=== PATIENT | female | born 1990 | race Hispanic/Latino ===

== ENCOUNTER 2021-10-14 18:37 | Emergency (ER) | payer BC, SELFPAY ==
[2021-10-14 18:49] VITALS: BP 142/94; PULSE 67; RESP 16; TEMP 36.6; O2SAT 100
--- NOTE | 2021-10-14 18:53 | ED.URI ---
HPI - URI/Sore Throat General Chief Complaint: Upper Respiratory Infection Stated Complaint: cough Time Seen by Provider: 10/14/21 18:53 Source: patient, family, RN notes reviewed, old records reviewed and product safety engineer (Family member, declined telephone product safety engineer) Mode of arrival: ambulatory Limitations: no limitations History of Present Illness HPI Narrative: 31-year-old female presents to the [facility] with complaints of cough, fever for the last 2 to 3 days. Reports a fever of 101 at home. Has tried Tylenol MD elicited complaint: cough, rhinorrhea, nasal congestion and sinus pain Related Data Allergies Allergy/AdvReac Type Severity Reaction Status Date / Time No Known Allergies Allergy Verified 10/14/21 19:08 Review of Systems Review of Systems: All systems reviewed & are unremarkable except as noted in HPI and below Constitutional: Constitutional: Reports as per HPI, Reports chills, Reports fever(s) and Denies headache(s) Eyes: Eyes: Reports no additional eye complaints ENT: Reports as per HPI, Denies vertigo, Denies dizziness, Denies headache(s), Reports nasal congestion and Denies sore throat Cardiovascular: Cardiovascular: Reports no additional cardiovascular complaints, Denies chest pain, Denies syncope, Denies rapid heart rate and Denies dyspnea Respiratory: Respiratory: Reports as per HPI, Reports chest congestion, Reports cough, Denies dyspnea and Denies wheezing Gastrointestinal: Gastrointestinal: Reports no additional gastrointestinal complaints, Denies abdominal pain, Denies diarrhea, Denies nausea and Denies vomiting Musculoskeletal: Musculoskeletal: Reports no additional musculoskeletal complaints and Denies numbness Integumentary/Breasts: Skin/Breast: Reports system reviewed and no additional complaints, except as docu Neurologic: Reports system reviewed and no additional complaints, except as documented, Denies vertigo, Denies dizziness, Denies syncope, Denies headache(s), Denies focal weakness and Denies numbness Psychiatric: Psychiatric: Reports no additional psychiatric complaints Allergic/Immunologic: Allergic/Immunologic: Reports no additional allergic/immunologic complaints and Denies wheezing PMFSH Past Medical History Medical History (Updated 10/14/21 @ 20:00 by Charley Meehan APRN) No significant medical problems Surgical History Surgical History (Updated 10/14/21 @ 20:00 by Charley Meehan APRN) No pertinent past surgical history Comments At the time of my signature, I reviewed and agree with the nursing past medical, surgical, social, and family history. There is no relevant family history pertinent to the patient complaint. Exam Const: General: cooperative, healthy appearing, no acute distress, well developed and alert Nutritional Appearance: well nourished Orientation/consciousness: patient oriented x3 Limitations: no limitations HENMT: Head: normal to inspection Ears: external ears normal, TM's normal bilaterally and EAC's normal Mouth: Yes moist mucous membranes Throat: posterior oropharynx normal Eyes: Conjunctivae: conjunctivae normal Pupils: Equal, round and reactive pupils present Neck: Neck: normal visual inspection, no lymphadenopathy and no meningeal signs Chest: Chest palpation & inspection: normal inspection of the chest Resp: Effort & Inspection: normal respiratory effort and no use of accessory muscles Auscultation: clear to auscultation bilaterally, no crackles, no rales, no rhonchi and no wheezes Cardio: Rate: regular rate Rhythm: regular rhythm : General: Yes no CVA tenderness Back/Spine/Pelvis: Back: no CVA tenderness Skin: General skin exam: normal color Rashes: no rashes Wounds: no wounds Neuro: General: patient oriented x3, moves all extremities, no meningeal signs and no focal motor deficits Cranial nerves: Yes Equal, round and reactive pupils present Speech: normal speech Gait exam (Neuro): Normal gait present Extrem: General: nor
[2021-10-15 18:42] LABS: SARS-CoV-2 RNA PCR Negative
== END 2021-10-14 19:20 | disposition home or self-care (01) ==
PROVIDERS: Emergency Provider Nurse Practitioner
DX: J40 Bronchitis, not specified as acute or chronic (principal); Z20.822 Contact with and (suspected) exposure to COVID-19
CPT/HCPCS: 87426; 87804; 99203; 99213; C9803; G0463; U0003; U0005

== ENCOUNTER 2021-11-09 12:33 | Emergency (ER) | payer BC, SELFPAY ==
--- NOTE | ~2021-11-09 | CT_ITS ---
EXAMINATION: CT brain wo con DATE: 11/09/2021 13:08 INDICATION: Headache and dizziness TECHNIQUE: Computed tomography (CT) of the head was performed without intravenous contrast. Sagittal and coronal reconstructions were performed. The mA was adjusted according to patient size. Iterative reconstruction technique was employed. The dose-length product was 529.67 mGy-cm. COMPARISON: None FINDINGS: No acute intracranial hemorrhage, acute infarction or abnormal extra axial fluid collection. Ventricl es are normal and symmetric. No mass/mass effect. The orbits, paranasal sinuses and mastoid air cells are normal. IMPRESSION: 1. Normal brain. No acute intracranial process. Reviewed, dictated and finalized at location A.
[2021-11-09 12:37] VITALS: BP 171/110; PULSE 66; RESP 26; TEMP 36.9; O2SAT 100
--- NOTE | 2021-11-09 12:44 | ECG_ITS ---
Measurements Intervals [place] Rate: 61 P: 35 VA: 157 QRS: 1 QRSD: 98 T: -1 QT: 397 QTc: 402 Interpretive Statements SINUS RHYTHM MODERATE T-WAVE ABNORMALITY, CONSIDER ANTERIOR ISCHEMIA [-0.1+ mV T-WAVE IN V3/V4] ABNORMAL ECG NO PREVIOUS ECG AVAILABLE FOR COMPARISON Electronically Signed On 11-09-2021 14:35:12 CDT by Wilfredo Lovett M.D.
--- NOTE | 2021-11-09 12:55 | ED.HA ---
HPI - Headache General Chief Complaint: Dizziness Stated Complaint: headache Time Seen by Provider: 11/09/21 12:45 History of Present Illness HPI Narrative: 31-year-old female presents to the ER today for complaints of posterior headache with associated dizziness, photophobia, and nausea. No vomiting. She reports that her symptoms started early this morning. It was gradual onset but continues to get worse. She says that the pain came on gradually. No visual changes or extremity weakness. No problems with speech. No confusion. She denies having any chest pain but does report that she feels short of breath when her pain is more severe. Denies any abdominal pain. No urinary symptoms or diarrhea. No fever or chills. Related Data Allergies Allergy/AdvReac Type Severity Reaction Status Date / Time No Known Allergies Allergy Verified 11/09/21 12:48 Review of Systems Review of Systems: CONSTITUTIONAL: Denies fever, chills, or sweats. EYES: Denies visual changes, redness, or discharge. ENT: Denies rhinorrhea, congestion, sore throat, or otalgia. CARDIOVASCULAR: Denies chest pain, palpitations, or edema. RESPIRATORY: Denies cough or chest congestion GASTROINTESTINAL: Denies abdominal pain, vomiting, or diarrhea. Reports nausea. GENITOURINARY: Denies dysuria or hematuria. SKIN: Denies rash or itching. MUSCULOSKELETAL: Denies back pain, joint pain, or myalgia. NEUROLOGIC: As per HPI PSYCHIATRIC: Denies anxiety or depression. PMFSH Past Medical History Medical History No significant medical problems Surgical History Surgical History No pertinent past surgical history Exam Narrative: GENERAL: Well-appearing, well-nourished, and in no acute distress. HEAD: Normocephalic, atraumatic. EYES: PERRLA and EOMI. ENT: Nares clear, no rhinorrhea or epistaxis. Mucous membranes moist. Oropharynx without tonsillar hypertrophy exudate or other lesions. Bilateral TMs pearly kerr nonbulging NECK: Supple. No meningeal signs. No adenopathy or masses. No carotid bruits or JVD CHEST: Clear to auscultation. No respiratory distress. No wheezes rales or rhonchi HEART: Regular rate and rhythm. No murmur heard. Normal peripheral pulses. ABDOMEN: Soft, nontender, nondistended, normal active bowel sounds. EXTREMITIES: Normal range of motion. No edema. SKIN: Warm, dry, no rash. NEURO: No focal deficits. Alert and oriented x3. PSYCH: Normal mood and affect. Course Reevaluation(s) Reevaluation #1: Pt reports that her symptoms are resolved. Feeling much better. Date: 11/09/21 Time: 13:30 Vital Signs Vital signs: Vital Signs Temperature 36.9 C 11/09/21 12:37 Pulse Rate 66 11/09/21 12:37 Respiratory Rate 26 H 11/09/21 12:37 Blood Pressure 171/110 H 11/09/21 12:37 Pulse Oximetry 100 11/09/21 12:37 Oxygen Delivery Room Air 11/09/21 12:37 Temperature 36.9 C 11/09/21 12:37 Pulse Rate 71 11/09/21 13:14 Respiratory Rate 26 H 11/09/21 12:37 Blood Pressure 146/98 H 11/09/21 13:14 Pulse Oximetry 100 11/09/21 12:37 Oxygen Delivery Room Air 11/09/21 12:37 MDM - Headache Lab Data Attestation: I reviewed the patient's lab results. Result diagrams: 11/09/21 12:57 11/09/21 13:21 Labs: Lab Results 11/09/21 11/09/21 11/09/21 Range/Units 12:57 13:10 13:21 WBC 6.5 (4.5-10.0) K/mm3 RBC 4.97 (4.2-5.4) M/mm3 Hgb 14.8 (12.0-15.0) g/dL Hct 43.4 (37.0-47.0) % MCV 87.3 (80-100) fl MCH 29.8 (26-34) pg MCHC 34.1 (32-36) g/dl RDW 12.2 (11.5-14.5) % Plt Count 292 (150-375) k/mm3 MPV 10.0 (7.4-10.4) fl Immature Gran % (Auto) 0.3 (0-0.5) % Neut % (Auto) 59.2 (45.5-73.1) % Lymph % (Auto) 32.9 (18.3-44.2) % Cochran % (Auto) 5.9 (2.6-8.5) % Eos % (Auto) 1.2 (0-4.4) % Baso % (Auto) 0.5 (0.
[2021-11-09 13:02] LABS: Basophils Percent Auto 0.5 % (0.2-1.2); Eosinophils Absolute Auto 0.1 K/mm3 (0-0.3); Eosinophils Percent Auto 1.2 % (0-4.4); Hematocrit 43.4 % (37.0-47.0); Hemoglobin 14.8 g/dL (12.0-15.0); Immature Granulocyte Absolute 0.02 K/mm3 (0.00-0.031); Immature Granulocyte Percent A 0.3 % (0-0.5); Lymphocytes Absolute Auto 2.13 K/mm3 (0.9-3.2); Lymphocytes Percent Auto 32.9 % (18.3-44.2); Mean Corpuscular HGB Conc 34.1 g/dl (32-36); Mean Corpuscular Hemoglobin 29.8 pg (26-34); Mean Corpuscular Volume 87.3 fl (80-100); Monocytes Absolute Auto 0.4 K/mm3 (0.1-0.6); Monocytes Percent Auto 5.9 % (2.6-8.5); Neutrophils Absolute Auto 3.8 K/mm3 (1.3-6.7); Neutrophils Percent Auto 59.2 % (45.5-73.1); Platelet Count Result 292 k/mm3 (150-375); Red Blood Count 4.97 M/mm3 (4.2-5.4); Red Cell Distribution Width 12.2 % (11.5-14.5); White Blood Count 6.5 K/mm3 (4.5-10.0)
--- NOTE | 2021-11-09 13:10 | PC.NURSE ---
pt in catscan
[2021-11-09 13:13] VITALS: BP 140/91; BP 145/100; PULSE 62; PULSE 70
[2021-11-09 13:14] VITALS: BP 146/98; PULSE 71
[2021-11-09] MEDS: METOCLOPRAMIDE HCL INJ 10 MG/2 ML VIAL IV PUSH (13:20)
[2021-11-09] MEDS: diphenhydrAMINE HCl INJ 50 MG/ML VIAL IV PUSH (13:20)
[2021-11-09] MEDS: SODIUM CHLORIDE 0.9% IV 1,000 ML 999 ML IV CONT (13:20)
[2021-11-09 13:28] LABS: Appearance Urine Slightly Cloudy (Clear); Bilirubin Urine Negative (Negative); Blood Urine 2+ (Negative); Glucose Urine UA Negative (Negative); Ketones Urine Negative (Negative); Leukocyte Esterase Ur 1+ LEU/UL (Negative); Nitrate Urine Negative (Negative); Protein Urine Negative (Negative); Urobilinogen Urine 0.2 mg/dL (<2.0)
[2021-11-09 13:40] LABS: Add Urine Microscopic? YES; Color Urine Light Yellow (Yellow)
[2021-11-09 13:46] LABS: WBC Urine 21-30 /hpf
[2021-11-09 13:47] LABS: Bacteria Urine Trace /hpf; Mucus Urine Few /lpf; Squamous Epithelial Cell Urine Many /hpf (Few)
[2021-11-09 14:14] LABS: Alanine Aminotransferase 122 U/L (6-35); Albumin Level 4.6 g/dL (3.5-5.1); Alkaline Phosphatase 67 U/L (38-126); Anion Gap 9 mmol/L (8-16); Aspartate Amino Transferase 74 U/L (14-36); Bilirubin,Total 0.6 mg/dL (0.2-1.3); Blood Urea Nitrogen 8 mg/dL (7-17); Calcium 9.1 mg/dL (8.4-10.2); Carbon Dioxide 24 mmol/L (22-30); Chloride 105 mmol/L (98-107); Estimated CRCL calculation 122 ml/min; Estimated Glomerular Filt Rate > 60; Glucose 96 mg/dL (65-110); Potassium 3.9 mmol/L (3.4-5.0); Sodium 138 mmol/L (137-145)
[2021-11-09 15:39] VITALS: BP 143/101; PULSE 76; RESP 26; O2SAT 99
--- NOTE | 2021-11-15 09:18 | PC.NURSE ---
LATE ENTRY This note is being entered to document information to the patient's record. The following information was omitted on [11/09/21 NS stop time is 1325. Rocephin stop time is 1540.
== END 2021-11-09 15:41 | disposition home or self-care (01) ==
PROVIDERS: Emergency Medicine; Emergency Provider Nurse Practitioner Family
DX: N39.0 Urinary tract infection, site not specified (principal); R51.9 Headache, unspecified; R42 Dizziness and giddiness; R94.31 Abnormal electrocardiogram [ECG] [EKG]
CPT/HCPCS: 36415; 70450; 80053; 81001; 81025; 85025; 87086; 93005; 96365; 96375; 99284; J0696; J1200; J2765; J7030

== ENCOUNTER 2022-04-02 17:07 | Emergency (ER) | payer BC, SELFPAY ==
[2022-04-02 17:20] VITALS: BP 138/99; PULSE 84; RESP 16; TEMP 36.6; O2SAT 100
--- NOTE | 2022-04-02 17:52 | ED.GENADULT ---
HPI - General Adult General Chief complaint: Headache Stated complaint: Right Side Pain all Over Time Seen by Provider: 04/02/22 17:52 Source: patient, RN notes reviewed, old records reviewed and tape keller operator (Italian, confucianist family) Mode of arrival: ambulatory Limitations: no limitations History of Present Illness HPI narrative: 31-year-old female presents to the [facility] with complaints of a left-sided headache. No neuro deficits. Patient is photo and phono sensitive. No treatment prior to arrival. Had been seen tape keller operator reports at [place] a year so ago. Per medical record patient was seen in the ER at [place] on November 09, 2021, CT head was done. Related Data Home Medications Medication Instructions Recorded Confirmed norethindrone 1 mg-ethinyl 1 tablet PO DAILY 04/02/22 04/02/22 estradiol 20 mcg (21)-iron 75 mg (7) tablet (Alicia Fe 06/15 (28)) Allergies Allergy/AdvReac Type Severity Reaction Status Date / Time No Known Allergies Allergy Verified 04/02/22 17:55 Review of Systems Review of Systems: All systems reviewed & are unremarkable except as noted in HPI and below Constitutional: Constitutional: Reports no additional constitutional complaints, Denies chills and Denies fever(s) Eyes: Eyes: Reports no additional eye complaints ENT: Reports system reviewed and no additional complaints, except as documented Cardiovascular: Cardiovascular: Reports no additional cardiovascular complaints Respiratory: Respiratory: Reports no additional respiratory complaints Gastrointestinal: Gastrointestinal: Reports no additional gastrointestinal complaints Musculoskeletal: Musculoskeletal: Reports no additional musculoskeletal complaints Integumentary/Breasts: Skin/Breast: Reports system reviewed and no additional complaints, except as docu Neurologic: Reports as per HPI, Denies syncope, Reports headache(s), Denies focal weakness, Denies numbness and Denies weakness Psychiatric: Psychiatric: Reports no additional psychiatric complaints Allergic/Immunologic: Allergic/Immunologic: Reports no additional allergic/immunologic complaints PMFSH Past Medical History Medical History No significant medical problems Surgical History Surgical History No pertinent past surgical history Comments At the time of my signature, I reviewed and agree with the nursing past medical, surgical, social, and family history. There is no relevant family history pertinent to the patient complaint. Exam Const: General: healthy appearing, comfortable, no acute distress, well developed, alert and well nourished Nutritional Appearance: well nourished Orientation/consciousness: patient oriented x3 Limitations: no limitations HENMT: Head: normal to inspection Ears: external ears normal, TM's normal bilaterally and EAC's normal Face/Nose/Sinus: Normal external nose present and Normal nares present Face and sinus: normal facial exam Mouth: Yes Normal oral and palatal mucosa present, Yes lip normal and Yes moist mucous membranes Teeth and gingiva: dentition normal Throat: posterior oropharynx normal and uvula midline Eyes: General: appearance normal, both eyes and all related structures Conjunctivae: conjunctivae normal Pupils: Equal, round and reactive pupils present EOM: EOMs intact bilaterally Neck: Neck: normal visual inspection, full ROM, no lymphadenopathy and no meningeal signs Chest: Chest palpation & inspection: normal inspection of the chest Resp: Effort & Inspection: normal respiratory effort and no use of accessory muscles Auscultation: clear to auscultation bilaterally, no crackles, no rales, no rhonchi and no wheezes Cardio: Rate: regular rate Rhythm: regular rhythm Back/Spine/Pelvis: Cervical Spine: cervical ROM normal and No Cervical spine tenderness Thoracic/Lumbar Spine: thoracic and lumbar spine
== END 2022-04-02 18:10 | disposition home or self-care (01) ==
PROVIDERS: Emergency Provider Nurse Practitioner; PCP Registered Nurse
DX: G43.909 Migraine, unspecified, not intractable, without status migrainosus (principal); E78.00 Pure hypercholesterolemia, unspecified; I10 Essential (primary) hypertension
CPT/HCPCS: 99213; G0463

== ENCOUNTER 2022-09-11 09:18 | Emergency (ER) | payer BC, SELFPAY ==
--- NOTE | ~2022-09-11 | US_ITS ---
EXAMINATION: US OB <= 14 weeks fetus DATE: 09/11/2022 12:49 INDICATION: Vaginal bleeding during first trimester TECHNIQUE: Real-time pelvic ultrasound utilizing transabdominal probe was performed. The kylee radford radiologist was not present for the study. COMPARISON: None. FINDINGS: The uterus measures 10.0 x 5.9 x 5.8 cm. There is an intrauterine gestational sac. A yolk sac and fe sami pole are identified. The crown rump length measures 9 mm, which correlates with an estimated gest ational age of 6 weeks and 6 days. heart motion is identified measuring 123 beats per minute (b pm) by M-mode Doppler. 9 mm very hypoechoic to anechoic lesion in the posterior uterine body could re present either a small fibroid or myometrial cyst. The right ovary measures 2.7 x 3.3 x 2.6 cm. The l eft ovary measures 4.0 x 3.8 x 2.6 cm. 2.5 similar anechoic likely corpus luteum cyst in the left ova ry. Vascular flow identified in both ovaries on color Doppler. There is no free fluid in the pelvis. IMPRESSION: 1. Single living fetus with heart rate of 123 bpm. 2. Gestational age by ultrasound of 6 weeks 6 day(s) +/- 4 day(s) with ultrasound estimated date of delivery (BALA) of 05/01/2023. Reviewed, dictated and finalized at location A. IMPRESSION: 1. Single living fetus with heart rate of 123 bpm. 2. Gestational age by ultrasound of 6 weeks 6 day(s) +/- 4 day(s) with ultraso und estimated date of delivery (BALA) of 05/01/2023.
[2022-09-11 09:26] VITALS: BP 142/73; PULSE 75; RESP 16; TEMP 36.6; O2SAT 100
[2022-09-11 09:59] LABS: Basophils Percent Auto 0.3 % (0.2-1.2); Eosinophils Absolute Auto 0.1 K/mm3 (0-0.3); Eosinophils Percent Auto 0.6 % (0-4.4); Hematocrit 42.4 % (37.0-47.0); Hemoglobin 14.6 g/dL (12.0-15.0); Immature Granulocyte Absolute 0.06 K/mm3 (0.00-0.031); Immature Granulocyte Percent A 0.5 % (0-0.5); Lymphocytes Absolute Auto 2.29 K/mm3 (0.9-3.2); Lymphocytes Percent Auto 18.6 % (18.3-44.2); Mean Corpuscular HGB Conc 34.4 g/dl (32-36); Mean Corpuscular Hemoglobin 30.5 pg (26-34); Mean Corpuscular Volume 88.5 fl (80-100); Mean Platelet Volume 9.9 fl (7.4-10.4); Monocytes Absolute Auto 0.6 K/mm3 (0.1-0.6); Monocytes Percent Auto 5.1 % (2.6-8.5); Neutrophils Absolute Auto 9.2 K/mm3 (1.3-6.7); Neutrophils Percent Auto 74.9 % (45.5-73.1); Platelet Count Result 318 k/mm3 (150-375); Red Blood Count 4.79 M/mm3 (4.2-5.4); Red Cell Distribution Width 12.9 % (11.5-14.5); White Blood Count 12.3 K/mm3 (4.5-10.0)
--- NOTE | 2022-09-11 12:32 | ED.GENADULT ---
HPI - General Adult General Chief complaint: Vaginal Bleeding Stated complaint: preg, vag bleeding Time Seen by Provider: 09/11/22 12:06 History of Present Illness HPI narrative: 32 y/o at approx 8.1 wga by lmp presents for eval of L sided abdominal cramping and vaginal spotting x 1 day. Related Data Home Medications Medication Instructions Recorded Confirmed norethindrone 1 mg-ethinyl 1 tablet PO DAILY 04/02/22 04/02/22 estradiol 20 mcg (21)-iron 75 mg (7) tablet (Alicia Fe 06/15 (28)) Allergies Allergy/AdvReac Type Severity Reaction Status Date / Time No Known Allergies Allergy Verified 09/11/22 09:35 Review of Systems Review of Systems: Gen.: Denies fevers or chills Eyes: Denies eye pain or visual change ENT: Denies congestion Respiratory: Denies shortness of breath or cough CV: Denies chest pain or palpitations GI: Denies abdominal pain nausea, emesis or diarrhea denies burning, urgency, frequency or hematuria Musculoskeletal: Denies back pain or muscle pain Neuro: Denies numbness, tingling, weakness or focal weakness Skin: Denies rash Except as documented, all other systems reviewed and negative PMFSH Past Medical History Medical History No significant medical problems Surgical History Surgical History No pertinent past surgical history Exam Narrative: GENERAL: Well-appearing, well-nourished, and in no acute distress. HEAD: Normocephalic, atraumatic. EYES: PERRLA and EOMI. ENT: Nares clear, no rhinorrhea or epistaxis. Mucous membranes moist. NECK: Supple. CHEST: Clear to auscultation. No respiratory distress. HEART: Regular rate and rhythm. No murmur heard. Normal peripheral pulses. ABDOMEN: gravid, Soft, nontender, nondistended, normal active bowel sounds. EXTREMITIES: Normal range of motion. No edema. SKIN: Warm, dry, no rash. NEURO: No focal deficits. Alert and oriented x3. PSYCH: Normal mood and affect. Course Vital Signs Vital signs: Vital Signs Temperature 98 F 09/11/22 09:26 Pulse Rate 75 09/11/22 09:26 Respiratory Rate 16 09/11/22 09:26 Blood Pressure 142/73 H 09/11/22 09:26 Pulse Oximetry 100 09/11/22 09:26 Oxygen Delivery Room Air 09/11/22 09:26 Temperature 98 F 09/11/22 09:26 Pulse Rate 73 09/11/22 15:32 Respiratory Rate 18 09/11/22 15:32 Blood Pressure 143/85 H 09/11/22 15:32 Pulse Oximetry 100 09/11/22 15:32 Oxygen Delivery Room Air 09/11/22 09:26 Medical Decision Making MDM Narrative Medical decision making narrative: 32 yo female at 8.1 wga presents for eval of abd cramping and vag bleeding. No urinary symptoms. No ob galen yet. history obtained through interpretor. Pelvic US- IMPRESSION: 1. Single living fetus with heart rate of 123 bpm. 2.? Gestational age by ultrasound of 6 weeks 6 day(s) +/- 4 day(s) with ultrasound estimated date of delivery (BALA) of 05/01/2023.[facility] interpretor. workup indicative of uti which is likely contributing to pt's symptos. abx at DC and f/u with scudding inspector Vital Signs Vital Signs: Vital Signs Temperature 98 F 09/11/22 09:26 Pulse Rate 75 09/11/22 09:26 Respiratory Rate 16 09/11/22 09:26 Blood Pressure 142/73 H 09/11/22 09:26 Pulse Oximetry 100 09/11/22 09:26 Oxygen Delivery Room Air 09/11/22 09:26 Temperature 98 F 09/11/22 09:26 Pulse Rate 73 09/11/22 15:32 Respiratory Rate 18 09/11/22 15:32 Blood Pressure 143/85 H 09/11/22 15:32 Pulse Oximetry 100 09/11/22 15:32 Oxygen Delivery Room Air 09/11/22 09:26 Lab Data 09/11/22 09:44 Labs: Lab Results 09/11/22 09/11/22 09/11/22 Range/Units 09:44 09:44 09:44 WBC 12.3 H (4.5-10.0) K/mm3 RBC 4.79 (4.2-5.4) M/mm3 Hgb 14.6 (12.0-15.0) g/dL Hct 42.4 (37.0-47.0) % MCV 88.5 (80-100) fl MCH 30.5 (26-34) pg MCHC 34.4
[2022-09-11 13:24] VITALS: BP 137/85; PULSE 78; RESP 18; O2SAT 100
[2022-09-11 15:32] VITALS: BP 143/85; PULSE 73; RESP 18; O2SAT 100
[2022-09-11 15:41] LABS: Appearance Urine Turbid (Clear); Bilirubin Urine Negative (Negative); Blood Urine 3+ (Negative); Color Urine Yellow (Yellow); Glucose Urine UA Negative (Negative); Ketones Urine Negative (Negative); Nitrate Urine Negative (Negative); Protein Urine Negative (Negative); Specific Grav Ur 1.013 (1.001-1.035)
[2022-09-11 15:42] LABS: Bacteria Urine 4+ /hpf; Leukocyte Esterase Ur 3+ LEU/UL (Negative); Non Pathogenic Casts 0-2; Squamous Epithelial Cell Urine Many /hpf (Few); WBC Urine 21-50 /hpf
[2022-09-11 15:43] LABS: Add Urine Microscopic? YES
== END 2022-09-11 16:33 | disposition home or self-care (01) ==
PROVIDERS: Emergency Medicine; Emergency Provider Emergency Medicine; PCP Registered Nurse
DX: O26.851 Spotting complicating pregnancy, first trimester (principal); O23.41 Unspecified infection of urinary tract in pregnancy, first trimester; N39.0 Urinary tract infection, site not specified; Z3A.08 8 weeks gestation of pregnancy
CPT/HCPCS: 36415; 76801; 81001; 84702; 85025; 85461; 86850; 86900; 86901; 87086; 87088; 99283; 99284

== ENCOUNTER 2022-11-13 14:25 | Emergency (ER) | payer BC, SELFPAY ==
[2022-11-13 14:34] VITALS: BP 126/87; PULSE 93; RESP 16; TEMP 36.7; O2SAT 99
--- NOTE | 2022-11-13 15:06 | ED.NAVMDI ---
HPI - Nausea/Vomiting/Diarrhea General Chief complaint: Nausea/Vomiting/Diarrhea Stated complaint: Vomiting/Headache Time Seen by Provider: 11/13/22 15:10 Source: patient and RN notes reviewed Mode of arrival: ambulatory Limitations: no limitations History of Present Illness HPI Narrative: 32-year-old female who is 4 months presents concern for 2 days of nausea and vomiting with headache. She reports trouble keeping anything down since the symptoms started. She reports normal amount of urination, denies urgency, frequency, dysuria. Denies fever, aches, chills, sweats. Denies diarrhea. MD elicited complaint: nausea and vomiting Related Data Home Medications Medication Instructions Recorded Confirmed 11/13/22 nifedipine 30 mg tablet,extended mg PO 11/13/22 release 24 hr Allergies Allergy/AdvReac Type Severity Reaction Status Date / Time No Known Allergies Allergy Verified 11/13/22 14:42 Review of Systems Review of Systems: CONSTITUTIONAL: Denies malaise, chills, sweats, or fever. ENT: Denies rhinorrhea, congestion, sinus pain, otalgia or sore throat. CARDIOVASCULAR: Denies chest pain, palpitations, or edema. RESPIRATORY: Denies cough or dyspnea. GASTROINTESTINAL: Denies abdominal pain, diarrhea, bloody, or mucous stools. Reports nausea and vomiting GENITOURINARY: Denies dysuria or hematuria. MUSCULOSKELETAL: Denies myalgia. NEUROLOGIC: Denies headache. All systems reviewed & are unremarkable except as noted in HPI and below PMFSH Past Medical History Medical History No significant medical problems Surgical History Surgical History No pertinent past surgical history Comments At time of signature, agree with nursing past medical, surgical, social and family history. There is no relevant family history pertinent to the presenting complaint Exam Narrative: GENERAL: Well-appearing, well-nourished, and in no acute distress. HEAD: Normocephalic, atraumatic. EYES: PERRLA, conjunctivae clear, and EOMI. ENT: Nares clear, turbinates pink, no rhinorrhea or epistaxis. Mucous membranes moist. Oropharynx without edema, erythema, or lesions. Tonsils not enlarged and without exudate. NECK: Supple. No lymphadenopathy CHEST: Speaks in full sentences. No respiratory distress. HEART: Regular rate and rhythm. ABDOMEN: Soft, 4 months , nontender. Bowel sounds present in all four quadrants. SKIN: Warm, dry, no rash. NEURO: Alert and oriented x3. PSYCH: Normal mood and affect Course Course Emergency Course: Patient is aware of diagnosis, understands and agrees to treatment plan. Anticipatory guidance given. Patient agrees to follow-up as directed and is aware of reasons to seek care at the emergency department. Portions of this record may have been created with voice recognition software Level of Care: Express Care Visit Vital Signs Vital signs: Vital Signs Temperature 98.0 F 11/13/22 14:34 Pulse Rate 93 11/13/22 14:34 Respiratory Rate 16 11/13/22 14:34 Blood Pressure 126/87 11/13/22 14:34 Pulse Oximetry 99 11/13/22 14:34 Oxygen Delivery Room Air 11/13/22 14:34 Temperature 98.0 F 11/13/22 14:34 Pulse Rate 93 11/13/22 14:34 Respiratory Rate 16 11/13/22 14:34 Blood Pressure 126/87 11/13/22 14:34 Pulse Oximetry 99 11/13/22 14:34 Oxygen Delivery Room Air 11/13/22 14:34 Reviewed. MDM - Nausea/Vomiting/Diarrhea MDM Narrative Medical decision making narrative: Exam findings show no acute concerns or changes; patient is non-toxic appearing and is in no distress. Patient is appropriate for outpatient treatment and follow-up. Critical Care Time Critical Care Time Critical Care Time: No Discharge Plan Discharge Clinical Impression: Nausea & vomiting Patient Disposition: Home, Self-Care Condition: Stable
== END 2022-11-13 15:32 | disposition home or self-care (01) ==
PROVIDERS: Emergency Provider Nurse Practitioner; PCP Obstetrics & Gynecology
DX: O21.9 Vomiting of pregnancy, unspecified (principal); Z3A.00 Weeks of gestation of pregnancy not specified
CPT/HCPCS: 81003; 87081; 87880; 99213; G0463

== ENCOUNTER 2022-12-24 15:01 | Emergency (ER) | payer BC, SELFPAY ==
[2022-12-24 16:00] VITALS: BP 124/77; PULSE 96; RESP 16; TEMP 36.6; O2SAT 99
--- NOTE | 2022-12-24 16:07 | PC.NURSE ---
spoke with fire extinguisher charger who recommended speaking with OB regarding where pt will be seen, since pt is 22 weeks and having abd pain. called marbin in OB, who recommended that pt remain in ER to be evaluated for n/v. requested when pt gets back to a room to call OB and have them come into dept to examine pt. lithopone charger aware
[2022-12-24 16:36] LABS: Basophils Percent Auto 0.2 % (0.2-1.2); Eosinophils Absolute Auto 0.1 K/mm3 (0-0.3); Eosinophils Percent Auto 1.1 % (0-4.4); Hematocrit 36.9 % (37.0-47.0); Hemoglobin 12.9 g/dL (12.0-15.0); Immature Granulocyte Absolute 0.07 K/mm3 (0.00-0.031); Immature Granulocyte Percent A 0.6 % (0-0.5); Lymphocytes Absolute Auto 1.99 K/mm3 (0.9-3.2); Lymphocytes Percent Auto 16.4 % (18.3-44.2); Mean Corpuscular Hemoglobin 30.4 pg (26-34); Mean Platelet Volume 9.6 fl (7.4-10.4); Monocytes Absolute Auto 0.8 K/mm3 (0.1-0.6); Monocytes Percent Auto 6.2 % (2.6-8.5); Neutrophils Absolute Auto 9.2 K/mm3 (1.3-6.7); Neutrophils Percent Auto 75.5 % (45.5-73.1); Platelet Count Result 274 k/mm3 (150-375); Red Blood Count 4.24 M/mm3 (4.2-5.4); Red Cell Distribution Width 12.7 % (11.5-14.5); White Blood Count 12.2 K/mm3 (4.5-10.0)
[2022-12-24 16:49] LABS: Alanine Aminotransferase 20 U/L (6-35); Albumin Level 4.2 g/dL (3.5-5.1); Alkaline Phosphatase 58 U/L (38-126); Anion Gap 9 mmol/L (8-16); Aspartate Amino Transferase 26 U/L (14-36); Bilirubin,Total 0.3 mg/dL (0.2-1.3); Blood Urea Nitrogen 6 mg/dL (7-17); Calcium 8.8 mg/dL (8.4-10.2); Carbon Dioxide 22 mmol/L (22-30); Chloride 103 mmol/L (98-107); Estimated CRCL calculation 134 ml/min; Estimated Glomerular Filt Rate > 60; Glucose 100 mg/dL (65-110); Lipase 103 U/L (23-300); Potassium 3.3 mmol/L (3.4-5.0); Sodium 134 mmol/L (137-145)
[2022-12-24 17:46] VITALS: BP 123/91; PULSE 79; RESP 14; TEMP 37.1; O2SAT 100
[2022-12-24 18:21] LABS: Appearance Urine Turbid (Clear); Bacteria Urine 1+ /hpf; Bilirubin Urine Negative (Negative); Blood Urine Negative (Negative); Color Urine Yellow (Yellow); Glucose Urine UA Trace mg/dL (Negative); Ketones Urine Negative (Negative); Leukocyte Esterase Ur 1+ LEU/UL (Negative); Nitrate Urine Negative (Negative); Non Pathogenic Casts 0-2; Protein Urine Negative (Negative); Specific Grav Ur 1.012 (1.001-1.035); Squamous Epithelial Cell Urine Moderate /hpf (Few); Urobilinogen Urine 0.2 mg/dL (<2.0); pH Urine 7.5 (5.0-9.0)
--- NOTE | 2022-12-24 18:22 | PC.NURSE ---
ANTHONY Haynes from OB was bedside to dopple FHS and the baby was sitting around 130-135bpm.
[2022-12-24 18:23] LABS: Add Urine Microscopic? YES
[2022-12-24] MEDS: ONDANSETRON INJ 4 MG/2 ML VIAL IV PUSH (18:44)
[2022-12-24] MEDS: SODIUM CHLORIDE 0.9% IV 1,000 ML 999 ML IV CONT (18:44)
--- NOTE | 2022-12-24 19:24 | ED.GENADULT ---
HPI - General Adult General Chief complaint: Nausea/Vomiting/Diarrhea Stated complaint: vomiting, abd pain Time Seen by Provider: 12/24/22 17:47 History of Present Illness HPI narrative: Patient is a 32-year-old female who presents ER with nausea and vomiting. Ongoing for 24 hours. Associate with lower abdominal cramping. Patient is 22 weeks in gestation and is a G2, P1. No complications with previous . During this patient has developed some hypertension. She has recently been started on nifedipine. No vaginal bleeding or leakage of fluid from vagina. Has urinary frequency but no dysuria. No fevers or chills or sweats. No diarrhea. Related Data Home Medications Medication Instructions Recorded Confirmed 11/13/22 nifedipine 30 mg tablet,extended mg PO 11/13/22 release 24 hr Allergies Allergy/AdvReac Type Severity Reaction Status Date / Time No Known Allergies Allergy Verified 12/24/22 18:04 Review of Systems Review of Systems: All systems reviewed & are unremarkable except as noted in HPI and below Constitutional: Constitutional: Denies chills and Denies fever(s) Cardiovascular: Cardiovascular: Denies chest pain and Denies rapid heart rate Respiratory: Respiratory: Denies cough and Denies dyspnea Gastrointestinal: Gastrointestinal: Reports abdominal pain, Denies diarrhea, Reports nausea and Reports vomiting Genitourinary: Genitourinary: Denies abnormal vaginal bleeding, Denies hematuria, Reports nocturia, Denies dysuria, Denies flank pain and Denies vaginal discharge PMFSH Past Medical History Medical History No significant medical problems Surgical History Surgical History No pertinent past surgical history Exam Narrative: GENERAL: Well-appearing, well-nourished, and in no acute distress. HEAD: Normocephalic, atraumatic. ENT: Mucous membranes moist. NECK: Supple. CHEST: Clear to auscultation. No respiratory distress. HEART: Regular rate and rhythm. Normal peripheral pulses. ABDOMEN: Soft, nontender, gravid uterus. EXTREMITIES: Normal range of motion. No edema. SKIN: Warm, dry, no rash. NEURO: Alert and oriented x3. PSYCH: Normal mood and affect. Course Course Emergency Course: Patient resting comfortably. She has been hydrated and received antinausea medicine. Concern for mild UTI and patient be started on antibiotics. Discharge home and recommend follow-up with her OB. heart tones present. Vital Signs Vital signs: Vital Signs Temperature 97.8 F 12/24/22 16:00 Pulse Rate 96 12/24/22 16:00 Respiratory Rate 16 12/24/22 16:00 Blood Pressure 124/77 12/24/22 16:00 Pulse Oximetry 99 12/24/22 16:00 Oxygen Delivery Room Air 12/24/22 16:00 Temperature 98.7 F 12/24/22 17:46 Pulse Rate 79 12/24/22 17:46 Respiratory Rate 14 12/24/22 17:46 Blood Pressure 123/91 H 12/24/22 17:46 Pulse Oximetry 100 12/24/22 17:46 Oxygen Delivery Room Air 12/24/22 17:46 Medical Decision Making Vital Signs Vital Signs: Vital Signs Temperature 97.8 F 12/24/22 16:00 Pulse Rate 96 12/24/22 16:00 Respiratory Rate 16 12/24/22 16:00 Blood Pressure 124/77 12/24/22 16:00 Pulse Oximetry 99 12/24/22 16:00 Oxygen Delivery Room Air 12/24/22 16:00 Temperature 98.7 F 12/24/22 17:46 Pulse Rate 79 12/24/22 17:46 Respiratory Rate 14 12/24/22 17:46 Blood Pressure 123/91 H 12/24/22 17:46 Pulse Oximetry 100 12/24/22 17:46 Oxygen Delivery Room Air 12/24/22 17:46 Lab Data 12/24/22 16:08 12/24/22 16:08 Labs: Lab Results 12/24/22 12/24/22 Range/Units 16:08 18:07 WBC 12.2 H (4.5-10.0) K/mm3 RBC 4.24 (4.2-5.4) M/mm3 Hgb 12.9 (12.0-15.0) g/dL Hct 36.9 L (37.0-47.0) % MCV 87.0 (80-100) fl MCH 30.4 (26-34) pg MCHC
[2022-12-24 20:57] VITALS: BP 119/81; PULSE 76; RESP 16; O2SAT 100
== END 2022-12-24 20:58 | disposition home or self-care (01) ==
PROVIDERS: Emergency Provider Emergency Medicine; PCP Obstetrics & Gynecology
DX: O23.42 Unspecified infection of urinary tract in pregnancy, second trimester (principal); N39.0 Urinary tract infection, site not specified; O21.9 Vomiting of pregnancy, unspecified; Z3A.22 22 weeks gestation of pregnancy
CPT/HCPCS: 36415; 80053; 81001; 81025; 83690; 85025; 87086; 87088; 96361; 96374; 99284; J2405; J7030

== ENCOUNTER 2023-05-09 22:03 | Emergency (ER) | payer BC, SELFPAY ==
[2023-05-09 22:03] VITALS: BP 117/68; PULSE 116; RESP 18; TEMP 36.3; O2SAT 99
--- NOTE | 2023-05-10 00:50 | PC.NURSE ---
Pt left ED w/out notifying the intake nurse, was not seen leaving. Did not answer when called to a room.
== END 2023-05-10 02:21 | disposition left against medical advice (07) ==
PROVIDERS: PCP Obstetrics & Gynecology
DX: I10 Essential (primary) hypertension (principal)
CPT/HCPCS: 99199

== ENCOUNTER 2024-09-17 19:29 | Emergency (ER) | payer SELFPAY ==
[2024-09-17 19:37] VITALS: BP 175/101; PULSE 60; RESP 18; TEMP 36.5; O2SAT 100
--- NOTE | 2024-09-17 19:51 | ED_ITS ---
HPI - Abdominal Pain General Chief Complaint: Nausea/Vomiting/Diarrhea Stated Complaint: Vomiting/Dizziness Time Seen by Provider: 09/17/24 19:40 Source: patient and RN notes reviewed Mode of arrival: ambulatory Limitations: no limitations History of Present Illness HPI narrative: 34-year-old Burmese-speaking female presents with a friend that can speak [place]an to [facility] complaining of nausea and vomiting and abdominal pain approximately 2 hours ago. Patient said she knows she did start developing blurry vision followed by an intense epigastric pain that led to intractable vomiting since. Patient says she has not been able to stop vomiting since she has gotten here. She has vomited once since she was here. She said sometimes the symptoms happen when she has high blood pressure. She said she took her nifedipine this morning. She denies any fever, body aches, chills, diarrhea, bloody vomit, or blood in her stool. Patient rates her pain at 10/10. She reports that her epigastric pain feels sharp and twisting like sensation. Related Data Home Medications ?Medication ?Instructions ?Recorded ?Confirmed ?Last Taken ?Type nifedipine 30 mg tablet,extended 30 mg PO DAILY 11/13/22 09/17/24 Unknown History release 24 hr Allergies Allergy/AdvReac Type Severity Reaction Status Date / Time No Known Allergies Allergy Verified 09/17/24 19:55 Review of Systems Review of Systems: CONSTITUTIONAL: Denies fever, chills, or sweats. EYES: Denies visual changes, redness, or discharge. Positive for blurry vision ENT: Denies rhinorrhea, congestion, sore throat, or otalgia. CARDIOVASCULAR: Denies chest pain, palpitations, or edema. RESPIRATORY: Denies cough or dyspnea. GASTROINTESTINAL: Positive for abdominal pain, nausea, vomiting new. Negative for hematochezia, melena, diarrhea. GENITOURINARY: Denies dysuria or hematuria. SKIN: Denies rash or itching. MUSCULOSKELETAL: Denies back pain, joint pain, or myalgia. NEUROLOGIC: Denies headache, numbness, or weakness. PSYCHIATRIC: Denies anxiety or depression. All other systems reviewed are negative, except as documented in HPI. [facility] Past Medical History Medical History No significant medical problems Surgical History Surgical History No pertinent past surgical history Comments At the time of my signature, I reviewed and agree with the nursing past medical, surgical, social, and family history. There is no relevant family history pertinent to the patient complaint. Exam Narrative: GENERAL: This is a well-nourished, well-developed adult, in no apparent distress. She is ill-appearing. Nontoxic appearing. HEAD: normocephalic, atraumatic. EYES: Sclera clear/white. Vision is grossly intact. EARS: External ears normal, Hearing grossly intact. NOSE: External nose normal THROAT: Mucous membranes moist NECK: Normal range of motion CARDIOVASCULAR: Regular rate and rhythm without murmurs, gallops, or rubs. RESPIRATORY: Clear to auscultation. Breath sounds equal bilaterally. No wheezes, rales, or rhonchi. GASTROINTESTINAL: Abdomen is distended, tender to palpation throughout. Abdomen is firm to left lower quadrant. Bowel sounds are absent. Patient is guarding her abdomen. SKIN: She is pale, warm, Dry, intact with no suspicious lesions or rash NEURO: awake, alert, and oriented to person, place and time. There were no obvious focal neurologic abnormalities. Course Course Emergency Course: Portions of this record may have been created with voice recognition software Level of Care: Express Care Visit Vital Signs Vital signs: Vital Signs Temperature 97.7 F 09/17/24 19:37 Pulse Rate 60 09/17/24 19:37 Respiratory Rate 18 09/17/24 19:37 Blood Pressure 175/101 H 09/17/24 19:37 Pulse Oximetry 100 09/17/24 19:37 Oxygen Delivery Room Air 09/17/24 19:37 Temperature 97.7 F 09/17/24 19:37 Pulse Rate 60 09/17/24 19:37 Respiratory Rate 18 09/17/24 19:37 Blood Pressure 175/101 H 09/17/24 19:37 Pulse Oximetry 100 09/17/24 19:37 Oxygen Delivery Room Air 09/17/24 19:37 Reviewed Transfer Transfered to: [facility]: [facility] Transfer rationale: Possible acute abdomen or hypertensive urgency, requiring higher level care and emergency department Accepting physician: Mattie FREIRE Transfer comments: [facility] is taking patient to [facility]. MDM - Abdominal Pain MDM Narrative Medical decision making narrative: Given past exam findings it is recommended the patient seek a higher level care for her acute abdomen symptoms and possible hypertensive urgency. Called and gave report to [facility] where she requested to go. Spoke with Mattie FREIRE who is aware the patient accepted the patient for transfer. Patient will be transferred via EMS over to [facility]. Differential Diagnosis Differential diagnosis: Likely other (Gastroenteritis, small-bowel obstruction, hypertensive crisis) Critical Care Time Critical Care Time Critical Care Time: No Discharge Plan Discharge Clinical Impression: Abdominal pain Qualifiers: Abdominal location: generalized Qualified Code(s): R10.84 - Generalized abdominal pain Patient Disposition: Acute Care Hospital Condition: Stable Patient Language: Burmese Prescriptions: No Action nifedipine 30 mg tablet extended release 24hr 30 mg PO DAILY Follow-up/Referrals: Milagros,Theo Castellon MD [Primary Care Provider] - Time of Disposition: 19:58
== END 2024-09-17 19:57 | disposition short-term general hospital (02) ==
PROVIDERS: PCP Obstetrics & Gynecology
DX: R10.84 Generalized abdominal pain (principal)
CPT/HCPCS: 99214; G0463

== ENCOUNTER 2024-09-17 20:20 | Emergency (ER) | payer SELFPAY ==
--- NOTE | ~2024-09-17 | CT_ITS ---
History: Headache PROCEDURE: CT head without contrast. COMPARISON: 11/09/2021 TECHNIQUE: Axial imaging of the head performed from the skull base to the vertex without IV contrast. Sagittal a nd coronal reformations obtained. DLP: 605 mGy-cm FINDINGS: The ventricles are normal in size, shape and position. There is no mass, mass effect or midline shift. There is no abnormal extra-axial fluid collection or intracranial hemorrhage. Visualized paranasal sinuses are clear. The mastoid air cells are well aerated. No acute displaced fractures within the overlying cranium. Impression: No acute intracranial hemorrhage or suspicious mass effect. Reviewed, dictated and finalized at location A. Impression: No acute intracranial hemorrhage or suspicious mass effect.
--- NOTE | ~2024-09-17 | CT_ITS ---
CLINICAL INDICATION: Epigastric pain, nausea and vomiting COMPARISON: None. TECHNIQUE: Multiple contiguous axial images of the abdomen and pelvis were performed following the ad ministration of with 100 mL Omnipaque-350 intravenous contrast The dose-length product (DLP) was 477.06 mGy-cm. Automated exposure control and iterative reconstruction technique were employed. Evaluation of the upper abdomen is markedly limited secondary to motion artifact. FINDINGS/OBSERVATIONS: Visualized lower thorax: The bilateral lung bases are clear. The heart is of normal size, without pericardial effusion. Small hiatal hernia is present. Liver: The liver demonstrates homogeneous enhancement and is enlarged measuring 20 cm in longitudinal dimens ion. Gallbladder and biliary system: The gallbladder is only minimally distended, and otherwise unremarkable. Pancreas: The pancreas enhances homogeneously without ductal dilatation. Spleen: The spleen enhances homogeneously and is not enlarged. Kidneys: The bilateral kidneys enhance symmetrically without hydronephrosis or renal calculi. Adrenal glands: Unremarkable. Gastrointestinal tract: Fecal stasis within the rectum. Appendix: The air-filled appendix is of normal caliber (axial series, images 112 through 126). Vasculature: Unremarkable. Lymph nodes: No pathologically enlarged or morphologically suspicious lymph nodes within the retroperitoneum or at the root of the mesentery. Pelvic structures: The bladder is only minimally distended, and otherwise unremarkable. The uterus is anteverted and anteflexed. The bilateral ovaries are symmetrically enlarged not an uncommon finding in a patient of this age. Body wall and musculoskeletal: No significant degenerative disease within the lower thoracic or lumbosacral spine. IMPRESSION: Hepatomegaly. Limited evaluation of the upper abdomen secondary to motion artifact. As such, no acute pathology detected within the abdomen or pelvis, as detailed above. Reviewed, dictated and finalized at location A.
[2024-09-17 20:21] VITALS: BP 189/114; PULSE 51; RESP 21; TEMP 36.7; O2SAT 100
[2024-09-17 20:36] VITALS: BP 187/102; PULSE 58; RESP 17; O2SAT 100
[2024-09-17 20:51] LABS: Basophils Percent Auto 0.5 % (0.2-1.2); Eosinophils Absolute Auto 0.2 K/mm3 (0-0.3); Eosinophils Percent Auto 2.2 % (0-4.4); Hemoglobin 12.8 g/dL (12.0-15.0); Immature Granulocyte Absolute 0.01 K/mm3 (0.00-0.031); Immature Granulocyte Percent A 0.1 % (0-0.5); Lymphocytes Absolute Auto 2.26 K/mm3 (0.9-3.2); Mean Corpuscular HGB Conc 34.6 g/dl (32-36); Mean Corpuscular Hemoglobin 29.7 pg (26-34); Mean Corpuscular Volume 85.8 fl (80-100); Monocytes Absolute Auto 0.5 K/mm3 (0.1-0.6); Monocytes Percent Auto 6.4 % (2.6-8.5); Neutrophils Absolute Auto 4.4 K/mm3 (1.3-6.7); Neutrophils Percent Auto 59.8 % (45.5-73.1); Platelet Count Result 299 k/mm3 (150-375); Red Blood Count 4.31 M/mm3 (4.2-5.4); Red Cell Distribution Width 11.9 % (11.5-14.5); White Blood Count 7.3 K/mm3 (4.5-10.0)
--- NOTE | 2024-09-17 20:51 | ECG_ITS ---
Test Date: 2024-09-17 21:40:56 Measurements Intervals [place] Rate: 59 P: 49 [place]: 167 QRS: 13 QRSD: 93 T: -25 QT: 451 QTc: 449 Interpretive Statements SINUS BRADYCARDIA INCOMPLETE RIGHT BUNDLE BRANCH BLOCK CONSIDER INFERIOR INFARCT, AGE INDETERMINATE MODERATE T-WAVE ABNORMALITY, CONSIDER ANTERIOR ISCHEMIA ABNORMAL ECG No previous ECG available for comparison Electronically Signed On 09-18-2024 07:18:55 CDT by Luis Miguel Richardson D.O.
--- NOTE | 2024-09-17 20:53 | ED_ITS ---
HPI - Abdominal Pain General Chief Complaint: Abdominal Pain Stated Complaint: ABD PAIN, N/V Time Seen by Provider: 09/17/24 20:28 History of Present Illness HPI narrative: 34-year-old female with reported history of migraines and hypertension presents to the ED via EMS with family friend at bedside for epigastric abdominal pain, nausea vomiting, headache. Patient's family friend at bedside translates per patient's request. Patient states around 6:00 p.m. 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 She states then the blurry vision resolved the headache has improved now she is having epigastric abdominal pain, nausea and vomiting. She went to urgent care was advised to come to the ED. She denies chest pain or shortness of breath, focal numbness or weakness. She is reporting generalized weakness. Denies dysuria or hematuria, diarrhea, fever, cough or congestion. Last bowel movement was today and normal. Patient is currently on her menstrual cycle. Related Data Home Medications ?Medication ?Instructions ?Recorded ?Confirmed ?Last Taken ?Type nifedipine 30 mg tablet,extended 30 mg PO DAILY 11/13/22 09/17/24 Unknown History release 24 hr Allergies Allergy/AdvReac Type Severity Reaction Status Date / Time No Known Allergies Allergy Verified 09/17/24 19:55 Review of Systems 2 Review of Systems: All systems reviewed & are unremarkable except as noted in HPI and below PMFSH Past Medical History Medical History No significant medical problems Surgical History Surgical History No pertinent past surgical history Exam 2 Narrative: GENERAL: NAD HEAD: Normocephalic, atraumatic. EYES: PERRLA and EOMI. ENT: Nares clear, no rhinorrhea or epistaxis. Mucous membranes moist. NECK: Supple. No nuchal rigidity CHEST: Clear to auscultation. No respiratory distress. HEART: Regular rate and rhythm. No murmur heard. Normal peripheral pulses. ABDOMEN: Normoactive bowel sounds. Abdomen soft with tenderness in the epigastrium. No rebound or rigidity. No CVA tenderness. Negative Judd's and McBurney's. EXTREMITIES: Normal range of motion. No edema. SKIN: Warm, dry, no rash. NEURO: No focal deficits. Alert and oriented x4. Cranial nerves 2-12 intact. Strength 5/5 in BUE and BLE. Sensation intact throughout. No ataxia Course Vital Signs Vital signs: Vital Signs Temperature 98.1 F 09/17/24 20:21 Pulse Rate 51 L 09/17/24 20:21 Respiratory Rate 21 H 09/17/24 20:21 Blood Pressure 189/114 H 09/17/24 20:21 Pulse Oximetry 100 09/17/24 20:21 Oxygen Delivery Room Air 09/17/24 20:21 Temperature 98.1 F 09/17/24 20:21 Pulse Rate 67 09/17/24 22:29 Respiratory Rate 16 09/17/24 22:29 Blood Pressure 149/92 H 09/17/24 22:29 Pulse Oximetry 100 09/17/24 22:29 Oxygen Delivery Room Air 09/17/24 20:21 MDM - Abdominal Pain MDM Narrative Medical decision making narrative: 34-year-old female with history of migraines and hypertension presents to the emergency department for epigastric abdominal pain, n/v that started around 6pm while at work. Also states she had blurred vision which has since resolved but is having right sided headache. Triage vitals with hypertension and mild bradycardia. Patient is on labetalol and nifedipine for hypertension and did take her doses today. She is afebrile and nontoxic appearing and neurovascularly intact, no focal deficits. Abdomen soft with tenderness in the suprapubic region, no rebound or guarding, no rigidity. Lab work is unremarkable with no leukocytosis or anemia. Chemistries do show mild dehydration with a bicarb of 28 anion gap of 13, fluids provided. UA with blood, patient is on her menstrual cycle, no UTI. is negative. Lipase within normal limits. EKG shows sinus bradycardia with a rate of 59 BP, normal [place] interval, normal QRS duration, normal QTC, moderate T-wave abnormalities in the anterolateral leads which is unchanged from prior. Troponin is undetectable. CT brain shows no acute intracranial abnormality. CT abdomen pelvis shows hepatomegaly. There is limited evaluation of the upper abdomen secondary to motion artifact, as such no acute pathology detected within the abdomen or pelvis. Her evaluation patient is resting comfortably in exam bed. She received IV fluids, Pepcid and headache cocktail with significant improvement. States all of her symptoms have resolved. Blood pressures improved. Patient will be discharged home advised follow-up with her PCP. Jerry sent pharmacy. Discussed strict ED return precautions. She is agreeable with the plan verbalized understanding. Discharged in stable condition. Lab Data 09/17/24 20:43 09/17/24 20:43 Labs: Lab Results 09/17/24 09/17/24 09/17/24 Range/Units 20:43 21:26 21:34 WBC 7.3 (4.5-10.0) K/mm3 RBC 4.31 (4.2-5.4) M/mm3 Hgb 12.8 (12.0-15.0) g/dL Hct 37.0 (37.0-47.0) % MCV 85.8 (80-100) fl MCH 29.7 (26-34) pg MCHC 34.6 (32-36) g/dl RDW 11.9 (11.5-14.5) % Plt Count 299 (150-375) k/mm3 MPV 10.0 (7.4-10.4) fl Immature Gran % (Auto) 0.1 (0-0.5) % Neut % (Auto) 59.8 (45.5-73.1) % Lymph % (Auto) 31.0 (18.3-44.2) % [place] % (Auto) 6.4 (2.6-8.5) % Eos % (Auto) 2.2 (0-4.4) % Baso % (Auto) 0.5 (0.2-1.2) % Lymph # (Auto) 2.26 (0.9-3.2) K/mm3 [place] # (Auto) 0.5 (0.1-0.6) K/mm3 Eos # (Auto) 0.2 (0-0.3) K/mm3 Baso # (Auto) 0.0 (0.0-0.1) K/mm3 Abs Immat Gran (auto) 0.01 (0.00-0.031) K/mm3 Absolute Neuts (auto) 4.4 (1.3-6.7) K/mm3 Absolute Nucleated RBC 0.000 (0.0-0.012) K/mm3 Nucleated RBC % 0.0 (0.0-0.2) % Sodium 138 (137-145) mmol/L Potassium 3.4 (3.4-5.0) mmol/L Chloride 105 (98-107) mmol/L Carbon Dioxide 20 L (22-30) mmol/L Anion Gap 13 H (4-12) mmol/L BUN 10 (7-17) mg/dL Creatinine 0.53 L (0.7-1.0) mg/dL Estim Creat Clear Calc 116 ml/min Estimated GFR > 60 (59 - ) Glucose 109 (65-110) mg/dL Calcium 8.9 (8.4-10.2) mg/dL Total Bilirubin 0.2 (0.2-1.3) mg/dL AST 24 (14-36) U/L ALT 20 (6-35) U/L Alkaline Phosphatase 72 (38-126) U/L Troponin I < 0.012 (0.000-0.034) ng/mL Total Protein 8.0 (6.3-8.2) g/dL Albumin 4.5 (3.5-5.1) g/dL Lipase 85 (23-300) U/L Urine Color Yellow (Yellow) Urine Appearance Turbid H (Clear) Urine pH 8.0 (5.0-9.0) Ur Specific [place] 1.014 (1.001-1.035) Urine Protein Trace (Negative) mg/dL Urine Glucose (UA) Negative (Negative) mg/dL Urine Ketones Negative (Negative) mg/dL Ur Blood (Man) 3+ H (Negative) Urine Nitrate Negative (Negative) Urine Bilirubin Negative (Negative) Urine Urobilinogen 0.2 (<2.0) mg/dL Leukocyte Esterase Rfl Negative (Negative) KAREL/UL Urine RBC 6-10 H (0-2) /hpf Urine WBC 0-5 (0-3) /hpf Ur Squamous Epith Cells Occasional (Few) /hpf Urine Bacteria None seen /hpf Urine Casts 0-2 POC Urine HCG, Qual Negative (Negative) Imaging Data Radiologist's impression: ITS Impressions Head CT 09/17/24 22:10 Impression: No acute intracranial hemorrhage or suspicious mass effect. Abdomen/Pelvis CT 09/17/24 22:23 IMPRESSION: Hepatomegaly. Limited evaluation of the upper abdomen secondary to motion artifact. As such, no acute pathology detected within the abdomen or pelvis, as detailed above. Discharge Plan Discharge Clinical Impression: Migraine, Hepatomegaly, GERD (gastroesophageal reflux disease) Patient Disposition: Home Condition: Stable Instructions: Antibiotic Form, Migraine Headache (ED), GERD (Gastroesophageal Reflux Disease) (DC), Abdominal Pain (ED) Additional Instructions: You were found have an enlarged liver. Follow up with her primary care provider regarding this. To continue taking her medications as directed. Take famotidine as needed for epigastric abdominal pain and ondansetron as needed for nausea and vomiting. Drink plenty of fluids. Return to the emergency department if you develop a fever, worsening pain, you are unable to tolerate food or fluids, or other concerning symptoms. Patient Language: Khmer Prescriptions: New ondansetron 4 mg tablet,disintegrating 4 mg PO Q8H Qty: 14 0RF famotidine 20 mg tablet 20 mg PO DAILY Qty: 20 0RF No Action nifedipine 30 mg tablet extended release 24hr 30 mg PO DAILY Follow-up/Referrals: Milagros,Theo Castellon MD [Primary Care Provider] -
--- OUTSIDE RECORDS SUMMARY | 2024-09-17 20:55 | XMS_ITS | Data Portability ---
Author Organization [facility] She[facility] Address [address] [place] [address] Care Team Providers Care Meter Inspector Name Role Phone ALEXIS GUERRERO Plug Drill Operator [phone] SHIVANI SKAGGS Primary Care Provider Assessment No assessment recorded. Plan of Treatment Reminders Order Date Submit Date Provider Last Modified By Organization Details Last Modified Time Details Appointments None recorded. Lab vitamin B12 + folate, serum or blood 2023 024 [facility], [address], [address], [place], [address], 4 10:13:27 CMP, serum or plasma 2023 024 [facility], [address], [address], [place], [address], 4 06:20:04 CBC w/ auto diff 2023 024 [facility], [address], [address], [place], [address], 4 06:20:05 rapid flu (A+B) 2023 024 [email or web address] 2 In-Office Order, Internal Use Only DO Not Attach Compendium DO Not Attach Compendium, Do Not Delete/merge, [id number] 19:17:18 rapid SARS CoV 2 Ag, QL IA, respiratory specimen 2023 024 [email or web address] 2 In-Office Order, Internal Use Only DO Not Attach Compendium DO Not Attach Compendium, Do Not Delete/merge, [id number] 19:17:19 Referral None recorded. Procedures None recorded. Surgeries None recorded. Imaging None recorded. Medication Orders Zofran 4 mg tablet 2023 024 [facility], [facility] [place], [address], 4 10:19:56 ibuprofen 600 mg tablet 2023 024 [facility], [address] [place] [address], [address], 4 10:19:57 nifedipine ER 60 mg tablet,exte nded release 24 hr 2023 024 [facility], [address] [place] [address], [address], 4 15:37:08 labetalol 200 mg tablet 2023 024 [facility] [address], [address] [place] [address], [address], 4 15:37:11 Robaxin-750 750 mg tablet 2023 024 [email or web address] [facility], [address] [place] [address], [address], 4 15:00:22 nifedipine ER 60 mg tablet,exte nded release 24 hr 2023 024 [facility] 2 [facility], [address] [place] [address], [address], 4 13:49:27 Patient TargetsNo targets recorded. Patient Instructions Encounter Date Encounter Id Patient Instructions Last Modified By Organization Details Last Modified Time 07/12/2023 [id number] A healthy lifestyle: care instructions [email or web address] Not available 07/12/2023 13:49:27 parte superior d e la espalda saludable: ejercicios - [healthy upper back: exercises] [email or web address] Not available 07/12/2023 13:57:29 Attending Physician Attestation I personally saw and examined the patient with the resident. I have reviewed the documentation and agree with the history, physical findings, work-up, and medical decision making as recorded. Maria Teresa River MD [email or web address] Not available 07/20/2023 15:56:09 09/04/2023 [id number] A healthy lifestyle: care instructions [email or web address] Not available 09/04/2023 15:49:46 11/11/2023 [id number] On the date of this encounter, I was immediately available to assist the resident/fellow in the care of the patient, and have reviewed and agree with the resident s findings and plan of care. MD Farhana [email or web address] Not available 11/18/2023 21:23:52 11/18/2023 [id number] I was present fo r the procedure and agree with the documented procedure and plan. Jena Aguirre MD, [facility] [email or web address] Not available 11/19/2023 09:58:54 01/16/2024 [id number] Attending Physician Attestation I did not personally see or examine the patient with the resident. I was physically present to provide indirect supervision through entire encounter. I have reviewed the documentation and agree with the history, physical findings, work-up, and medical decision making as recorded. Maria Teresa River MD [email or web address] Not available 01/16/2024 10:33:39 Reason for Referral None Reported. Results Created Date Observation Date Name Description Value Unit Range Abnormal Flag Note LastModifiedBy Organization Detail LastModifiedTime 06/18/1906/18/2023 pregn patrick test, urine HCG negati ve Not Available In-Office Order Internal Use Only DO Not Attach Compendium DO Not Attach Compendium, Do Not Delete/merge, [id number] 06/18/2023 11:17:59 07/02/19 24 07/02/2023 pregn patrick test, urine HCG negati ve Not Available In-Office Order Internal Use Only DO Not Attach Compendium DO Not Attach Compendium, Do Not Delete/merge, [id number] 07/02/2023 11:51:25 08/22/20 24 01/17/2024 COMP. METAB OLIC PANEL (14) glucose 87 mg/dL 70-[address] [facility] Department [address] [place], [address], 01/17/2024 06:20:04 01/16/20 24 01/17/2024 COMP. METAB OLIC PANEL (14) BUN 7 mg/dL 6-[address] [facility] Department [address] [place], [address], 01/17/2024 06:20:04 01/16/20 24 01/17/2024 COMP. METAB OLIC PANEL (14) creatinine 0.53 mg/dL 0.76-1 .27 below low normal Not Available [facility] Department [address] [place] [address], [address], 01/17/2024 06:20:04 01/16/20 24 01/17/2024 COMP. METAB OLIC PANEL (14) eGFR 124 >=60 Units for eGFR value s are mL/mi n/1.7 3 The eGFR Calcu latio n has not been valid ated for patie nts under the age of 18. If test resul ts are displ ayed for a patie nt under the age of 18, disre russell that value . Not Available [facility] Department [address] [place] [address], [address], 01/17/2024 06:20:04 01/16/20 24 01/17/2024 COMP. METAB OLIC PANEL (14) BUN/creatini ne ratio 14 9-23 Not Available [facility] Department [address] [place], [address], 01/17/2024 06:20:04 01/16/20 24 01/17/2024 COMP. METAB OLIC PANEL (14) sodium 139 mmol/ L 134-[address] [facility] Department [address] [place], [address], 01/17/2024 06:20:04 08/22/20 24 01/17/2024 COMP. METAB OLIC PANEL (14) potassium 3.9 mmol/ L 3.5-5. [address] [facility] Department [address] [place] [address], [address], 01/17/2024 06:20:04 01/16/20 24 01/17/2024 COMP. METAB OLIC PANEL (14) chloride 101 mmol/ L 96-[address] [facility] Department [address] [place] [address], [address], 01/17/2024 06:20:04 01/16/20 24 01/17/2024 COMP. METAB OLIC PANEL (14) carbon dioxide, total 26 mmol/ L 20-[address] [facility] Department [address] [place] [address], [address], 01/17/2024 06:20:04 01/16/20 24 01/17/2024 COMP. METAB OLIC PANEL (14) calcium 10.1 mg/dL 8.7-[address] [facility] Department [address] [place] [address], [address], 01/17/2024 06:20:04 01/16/20 24 01/17/2024 COMP. METAB OLIC PANEL (14) protein, total 8.0 g/dL 6.0-8. [address] [facility] Department [address] [place] [address], [address], 01/17/2024 06:20:04 01/16/20 24 01/17/2024 COMP. METAB OLIC PANEL (14) albumin 5.4 g/dL 3.9-4. 9 above high normal Not Available [facility] Department [address] [place] [address], [address], 01/17/2024 06:20:04 01/16/20 24 01/17/2024 COMP. METAB OLIC PANEL (14) globulin, total 2.6 g/dL 1.5-4. [address] [facility] Department [address] [place], [address], 01/17/2024 06:20:04 01/16/20 24 01/17/2024 COMP. METAB OLIC PANEL (14) A/G ratio 2.0 1.2-2. [address] [facility] Department [address] [place], [address], 01/17/2024 06:20:04 01/16/20 24 01/17/2024 COMP. METAB OLIC PANEL (14) bilirubin, total 0.6 mg/dL 0.0-1. [address] [facility] Department [address] [place], [address], 01/17/2024 06:20:04 01/16/20 24 01/17/2024 COMP. METAB OLIC PANEL (14) alkaline phosphatase 91 IU/L 44-121 Not Available [facility] Department [address] [place], [address], 01/17/2024 06:20:04 01/16/20 24 01/17/2024 COMP. METAB OLIC PANEL (14) AST (SGOT) 16 IU/L 0-40 Not Available [facility] Department [address] [place] [address], [address], 01/17/2024 06:20:04 01/16/20 24 01/17/2024 COMP. METAB OLIC PANEL (14) ALT (SGPT) 17 IU/L 0-32 Not Available [facility] Department [address] [place], [address], 01/17/2024 06:20:04 01/16/20 24 01/17/2024 CBC WITH DIFFE RENTI AL/PL ATELE T WBC 5.7 x10e3 /uL 3.4-[address] [facility] Department [address] [place] [address], [address], 01/17/2024 06:20:05 01/16/20 24 01/17/2024 CBC WITH DIFFE RENTI AL/PL ATELE T RBC 5.34 x10e6 /uL 3.77-5 .28 above high normal Not Available [facility] Department [address] [facility], [place], [address], 01/17/2024 06:20:05 01/16/20 24 01/17/2024 CBC WITH DIFFE RENTI AL/PL ATELE T hemoglobin 15.6 g/dL 11.1-[address] [facility] Department [address] [place], [address], 01/17/2024 06:20:05 01/16/20 24 01/17/2024 CBC WITH DIFFE RENTI AL/PL ATELE T hematocrit 45.4 % 34.0-[address] [facility] Department [address] [place], [address], 01/17/2024 06:20:05 01/16/20 24 01/17/2024 CBC WITH DIFFE RENTI AL/PL ATELE T MCV 85 fL 79-[address] [facility] Department [address] [place], [address], 01/17/2024 06:20:05 01/16/20 24 01/17/2024 CBC WITH DIFFE RENTI AL/PL ATELE T MCH 29.2 pg 26.6-[address] [facility] Department [address] [place], [address], 01/17/2024 06:20:05 01/16/20 24 01/17/2024 CBC WITH DIFFE RENTI AL/PL ATELE T MCHC 34.4 g/dL 31.5-[address] [facility] Department [address] [place], [address], 01/17/2024 06:20:05 01/16/20 24 01/17/2024 CBC WITH DIFFE RENTI AL/PL ATELE T RDW 12.2 % 11.5-[address] [facility] Department [address] [place], [address], 01/17/2024 06:20:05 01/16/20 24 01/17/2024 CBC WITH DIFFE RENTI AL/PL ATELE T platelets 327 x10e3 /uL 150-[address] [facility] Department [address] [place], [address], 01/17/2024 06:20:05 01/16/20 24 01/17/2024 CBC WITH DIFFE RENTI AL/PL ATELE T neutrophils 58 % notest b. Not Available [facility] Department [address] [place], [address], 01/17/2024 06:20:05 01/16/20 24 01/17/2024 CBC WITH DIFFE RENTI AL/PL ATELE T lymphs 34 % notest b. Not Available [facility] Department [address] [place], [address], 01/17/2024 06:20:05 01/16/20 24 01/17/2024 CBC WITH DIFFE RENTI AL/PL ATELE T monocytes 6 % notest b. Not Available [facility] Department [address] [place], [address], 01/17/2024 06:20:05 01/16/20 24 01/17/2024 CBC WITH DIFFE RENTI AL/PL ATELE T eos 2 % notest b. Not Available [facility] Department [address] [place], [address], 01/17/2024 06:20:05 01/16/20 24 01/17/2024 CBC WITH DIFFE RENTI AL/PL ATELE T basos 1 % notest b. Not Available [facility] Department [address] [place], [address], 01/17/2024 06:20:05 01/16/20 24 01/17/2024 CBC WITH DIFFE RENTI AL/PL ATELE T neutrophils (absolute) 3.3 x10e3 /uL 1.4-7. [address] [facility] Department [address] [place], [address], 01/17/2024 06:20:05 01/16/20 24 01/17/2024 CBC WITH DIFFE RENTI AL/PL ATELE T lymphs (absolute) 1.9 x10e3 /uL 0.7-3. [address] [facility] Department [address] [place], [address], 01/17/2024 06:20:05 01/16/20 24 01/17/2024 CBC WITH DIFFE RENTI AL/PL ATELE T monocytes(ab solute) 0.3 x10e3 /uL 0.1-0. [address] [facility] Department [address] [place], [address], 01/17/2024 06:20:05 01/16/20 24 01/17/2024 CBC WITH DIFFE RENTI AL/PL ATELE T eos (absolute) 0.1 x10e3 /uL 0.0-0. [address] [facility] Department [address] [place], [address], 01/17/2024 06:20:05 01/16/20 24 01/17/2024 CBC WITH DIFFE RENTI AL/PL ATELE T baso (absolute) 0.0 x10e3 /uL 0.0-0. [address] [facility] Department [address] [place], [address], 01/17/2024 06:20:05 01/16/20 24 01/17/2024 CBC WITH DIFFE RENTI AL/PL ATELE T immature granulocytes 0.2 % notest b. Not Available [facility] Department [address] [place], [address], 01/17/2024 06:20:05 01/16/20 24 01/17/2024 CBC WITH DIFFE RENTI AL/PL ATELE T immature grans (abs) 0.0 x10e3 /uL 0.0-0. [address] [facility] Department [address] [place], [address], 01/17/2024 06:20:05 01/16/20 24 01/17/2024 CBC WITH DIFFE RENTI AL/PL ATELE T NRBC 0 % 0-[address] [facility] Department [address], [place], [address], 01/17/2024 06:20:05 01/16/20 24 01/17/2024 VITAM IN B12 AND FOLAT E vitamin B12 329 pg/mL 232-12 45 Not Available [facility] ([facility]) [address], [place], [address], 01/17/2024 10:13:26 01/16/20 24 01/17/2024 VITAM IN B12 AND FOLAT E folate (folic acid), serum 9.8 NG/mL >3.0 A serum folat e rand ntrat ion of less than 3.1 ng/mL is consi dered to repre sent clini bob defic iency . Not Available [facility] ([facility]) [address], [place], [address], 01/17/2024 10:13:26 01/16/20 24 01/16/2024 rapid SARS CoV 2 Ag, QL IA, respi rator y speci men rapid SARS CoV 2 Ag, QL IA, respiratory specimen negati ve Not Available In-Office Order Internal Use Only DO Not Attach Compendium DO Not Attach Compendium, Do Not Delete/merge, [id number] 01/16/2024 10:43:36 01/16/20 24 01/16/2024 rapid flu (A+B) Flu A negati ve Not Available In-Office Order Internal Use Only DO Not Attach Compendium DO Not Attach Compendium, Do Not Delete/merge, [id number] 01/16/2024 10:43:25 01/16/20 24 01/16/2024 rapid flu (A+B) Flu B negati ve Not Available In-Office Order Internal Use Only DO Not Attach Compendium DO Not Attach Compendium, Do Not Delete/merge, [id number] 01/16/2024 10:43:25 Result Notes None recorded. Problems Name Problem SNOMED Code Status Onset Date Resolution Date Notes Provider Name and Address Organization Details Recorded Time Body mass index 25-29 - overweig 119473957 Active 2019 SHIELA Mitchell Attn: Santos radford,[address] [facility], [place], [place], [address] [place] [address] 2, [place] [facility] 2 12:52:58 Mixed hyperlip idemia 360891014 Active 2020 DESTIN MitchellBC Attn: Santos radford,[address] [facility], [place], [place], [address] [place] [address] 2, [place] [facility] 2 12:52:58 [facility] hyperten sujey 14263637 Active 2021 DESTIN MitchellBC Attn: Santos radford,[address] [facility], [place], [place], [address] [place] [address] 2, [place] [facility] 2 14:20:48 Migraine with aura 1130392 Active 2022 SHIELA Mitchell Attn: Santos radford,[address] [facility], [place], [place], [address] [place] [address], [place] [facility] 3 10:30:48 Liver function tests outside referenc e range 338695487 Active 2022 SHIELA Mitchell Attn: Santos radford,[address] [facility], [place], [place], [address] [place] [address] 2, [place] [facility] 3 10:30:48 [facility] 896988470 Active 2022 SHIELA Mitchell Attn: Santos radford,[address] [facility], [place], [address], [place] [facility] 3 16:05:17 Pregnanc y 44089329 Completed 202204/11/2023 Shirley Hatfield UROLOGIST PHYSICIAN null, [place] [facility] 3 15:58:13 Chronic hyperten sujey in obstetri c context 1262299 Completed 2022 Nifedipin e 60mg BID Labetalol 100mg BID Shirley Liu, UROLOGIST PHYSICIAN null, [place] [facility] 3 15:58:01 Chronic hyperten sujey in obstetri c context 4127529 Active 2022 Nifedipin e 60mg BID Labetalol 100mg BID [facility] Liu, UROLOGIST PHYSICIAN [place], [place] [facility] 3 15:58:01 Carrier of cystic fibrosis gene mutation 617603242 Completed 2022 Shirley Liu, UROLOGIST PHYSIC[place] [facility] 3 15:58:01 Carrier of cystic fibrosis gene mutation 492218969 Active 2022 Shirley Liu, UROLOGIST PHYSIC[place], [place] [facility] 3 15:58:01 Problem Notes None recorded. Procedures Surgical History Date Name Laterality Status Provider Name and Address Organization Details Recorded Time 4 Skin Tag Removal completed Shivani Skaggs MD Attn: Accounting,[address] [place], [address], [place] [facility] 11/18/2023 18:02:25 4 Control Implant Insertion completed Theo Linares MD Attn: Accounting[address] [place], [address], [place] [facility] 07/02/2023 12:32:15 3 Date of Last Pap Smear completed Brittany Almanza [place] [facility] 09/03/2023 13:57:16 3 Skin Tag Removal completed CAREY AREVALO Attn: Accounting,[address] [place], [address], [place] [facility] 09/27/2022 11:33:05 Imaging Results None recorded. Procedure Notes None recorded. Medical Equipment None Reported. Allergies No known drug allergies Medications Name Sig Start Date Stop Date Status Note LastModified by Organization Details LastModified Time nifedipine ER 30 mg tablet,exte nded release 24 hr TAKE 1 TABLET BY MOUTH ONCE DAILY IN THE MORNING 12/11 completed Not Available Not Available Not Available atorvastati n 20 mg tablet Take 1 tablet every day by oral route. 11/01 completed Not Available Not Available Not Available labetalol 200 mg tablet TAKE 1 TABLET BY MOUTH TWICE DAILY FOR HIGH BLOOD PRESSURE active Not Available Not Available No t Available nifedipine ER 90 mg tablet,exte nded release TAKE 1 TABLET BY MOUTH ONCE DAILY 02/11 completed Not Available Not Available Not Available ondansetron HCl 4 mg tablet TAKE 2 TABLETS BY MOUTH TWICE DAILY FOR NAUSEA FOR 14 DAYS active Not Available Not Available No t Available Ferrex 150 mg iron capsule TAKE 1 CAPSULE BY MOUTH ONCE DAILY 06/18 completed Not Available Not Available Not Available atenolol 50 mg-chlortha lidone 25 mg tablet Take 1 tablet every day by oral route. 11/01 completed Not Available Not Available Not Available chlorthalid one 25 mg tablet 06/05 completed Not Available Not Available Not Available aspirin 81 mg tablet,woodrow yed release Take 1 tablet every day by oral route. 09/25 completed Not Available Not Available Not Available potassium chloride ER 20 mEq tablet,exte nded release(par t/cryst) 04/09 completed Not Available Not Available Not Available methocarbam ol 750 mg tablet Take 1 tablet 3 times a day by oral route as needed for 30 days. 09/03 completed Not Available Not Available Not Available nifedipine ER 60 mg tablet,exte nded release 24 hr TAKE 1 TABLET BY MOUTH TWICE DAILY FOR HIGH BLOOD PRESSURE active Not Available Not Available No t Available nifedipine ER 90 mg tablet,exte nded release 24 hr Take 1 tablet every day by oral route. 02/11 completed Not Available Not Available Not Available cephalexin 500 mg capsule TAKE 1 CAPSULE BY MOUTH EVERY 8 HOURS FOR 7 DAYS 01/14 completed Not Available Not Available Not Available naproxen sodium 550 mg tablet Take 1 tablet every 12 hours by oral route. 11/01 completed Not Available Not Available Not Available ergocalcife rol (vitamin D2) 1,250 mcg (50,000 unit) capsule TAKE 1 CAPSULE BY MOUTH ONCE A WEEK 01/18 completed Not Available Not Available Not Available ibuprofen 600 mg tablet TAKE 1 TABLET BY MOUTH THREE TIMES DAILY FOR PAIN AND FOR HEADACHE active Not Available Not Available No t Available levofloxaci n 500 mg tablet TAKE 1 TABLET BY MOUTH ONCE DAILY FOR 7 DAYS 01/18 completed Not Available Not Available Not Available labetalol 100 mg tablet TAKE 1 TABLET BY MOUTH TWICE DAILY 06/18 completed Not Available Not Available Not Available nifedipine ER 60 mg tablet,exte nded release TAKE 1 TABLET BY MOUTH TWICE DAILY ON AN EMPTY STOMACH 06/18 completed Not Available Not Available Not Available ondansetron 4 mg disintegrat ing tablet DISSOLVE 1 TABLET IN MOUTH EVERY 8 HOURS NEEDED FOR NAUSEA AND VOMITING 02/25 completed Not Available Not Available Not Available medroxyprog esterone 150 mg/mL intramuscul ar suspension Inject 1 mL every 3 months by intramusc ular route. 08/23 completed Not Available Not Available Not Available naproxen 500 mg tablet TAKE 1 TABLET BY MOUTH TWICE DAILY NEEDED WITH FOOD 07/06 completed Not Available Not Available Not Available azithromyci n 500 mg tablet TAKE 2 TABLETS BY MOUTH A ONE TIME DOSE 03/25 completed Not Available Not Available Not Available cyclobenzap rine 5 mg tablet TAKE 1 TABLET BY MOUTH TWICE DAILY 01/18 completed Not Available Not Available Not Available nitrofurant oin monohydrate /macrocryst als 100 mg capsule Take 1 capsule every 12 hours by oral route for 7 days. 03/01 completed Not Available Not Available Not Available fenofibrate 160 mg tablet Take 1 tablet every day by oral route. active Not Available Not Available No t Available 11/01 completed Not Available Not Available Not Available Ferrex 150 06/18 completed Not Available Not Available Not Available butalbital- acetaminoph en-caffeine 50 mg-300 mg-40 mg capsule TAKE 1 CAPSULE BY MOUTH EVERY 8 HOURS NEEDED FOR PAIN 09/25 completed Not Available Not Available Not Available Nexplanon 68 mg subdermal implant Inject 1 implant by subcutane ous route. 2023 active Not Available Not Available Not Avai lable Classic 28 mg iron-800 mcg tablet TAKE 1 TABLET BY MOUTH ONCE DAILY 04/09 completed Not Available Not Available Not Available Alicia Fe /20 (28) 1 mg-20 mcg (21)/75 mg (7) tablet Take 1 tablet every day by oral route. 09/25 completed Not Available Not Available Not Available 28 mg-800 mcg tablet Take 1 tablet by oral route. 04/09 completed Not Available Not Available Not Available aspirin 81 mg capsule Take 1 capsule twice a day by oral route. 04/09 completed Not Available Not Available Not Available Vitals Date Recorded Body height Body temperature Oxygen saturation Oxygen saturation in Arterial blood by Pulse oximetry Heart rate Body mass index (BMI) Body weight Systolic blood pressure Diastolic blood pressure Provider Name and Address Organization Details Last Updated DateTime 4 159.39 cm 97.1 [degF] 99 % 99 % 90 /min 27.2 kg/m2 18173.7 4 g 123 mm[Hg] 88 mm[Hg] Loretta Eli MA [facility] 4 10:49:36 Date Recorded Body height Body mass index (BMI) Body weight Respiratory rate Heart rate Systolic blood pressure Diastolic blood pressure Systolic blood pressure Diastolic blood pressure Provider Name and Address Organization Details Last Updated DateTime 4 159.39 cm 26.8 kg/m2 87083.2 9 g 16 /min 94 /min 136 mm[Hg] 89 mm[Hg] 116 mm[Hg] 74 mm[Hg] Jeanette Claros [facility] 4 16:02:44 Date Recorded Body height Body mass index (BMI) Body weight Body temperature Respiratory rate Heart rate Systolic blood pressure Diastolic blood pressure Provider Name and Address Organization Details Last Updated DateTime 4 159.39 cm 26.3 kg/m2 24865.2 3 g 97.3 [degF] 16 /min 76 /min 145 mm[Hg] 90 mm[Hg] Chepe Lopez MA [facility] 4 15:15:15 Date Recorded Body height Body mass index (BMI) Body weight Heart rate Respiratory rate Body temperature Systolic blood pressure Diastolic blood pressure Provider Name and Address Organization Details Last Updated DateTime 4 159.39 cm 25.9 kg/m2 70505.9 4 g 68 /min 20 /min 98.3 [degF] 128 mm[Hg] 80 mm[Hg] Latonia Hall MA [facility] 4 17:20:33 Date Recorded Body height Body mass index (BMI) Body weight Respiratory rate Body temperature Oxygen saturation Oxygen saturation in Arterial blood by Pulse oximetry Heart rate Systolic blood pressure Diastolic blood pressure Provider Name and Address Organization Details Last Updated DateTime 4 159.39 cm 26.4 kg/m2 56061.3 1 g 18 /min 98.2 [degF] 99 % 99 % 88 /min 121 mm[Hg] 83 mm[Hg] ANGELINA Yen [facility] 4 09:57:46 Social History Question Answer Notes LastModified by Organizat ion Details LastModified Time Tobacco Smoking Status Never [facility]/04/2019 11:28:44 Do You Have An Advance Directive? No Information not available 01/18/2022 What Is Your Level Of Alcohol Consumption? None Information not available 02/04/2019 Are You Blind Or Do You Have Difficulty Seeing? No Information not available 08/23/2020 Is Blood Transfusion Acceptable In An Emergency? Yes Information not available 11/01/2022 What Is Your Level Of Caffeine Consumption? None Information not available 01/18/2022 In The 14 Days Before Symptom Onset, Have You Had Close Contact With A Laboratory-confir med COVID-19 While That Case Was Ill? No Information not available 08/23/2020 In The 14 Days Before Symptom Onset, Have You Had Close Contact With A Person Who Is Under Investigation For COVID-19 While That Person Was Ill? No Information not available 08/23/2020 Have You Been To An Area Known To Be High Risk For COVID-19? No Information not available 08/23/2020 Are You Currently Employed? Yes Information not available 01/18/2022 Are You Deaf Or Do You Have Serious Difficulty Hearing? No Information not available 08/23/2020 What Type Of Diet Are You Following? REGULAR Information not available 02/04/2019 Do You Or Have You Ever Used E-cigarettes Or Vape? Never Used Electronic Cigarettes Information not available 02/04/2019 What Is The Highest Grade Or Level Of School You Have Completed Or The Highest Degree You Have Received? 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 No [email or web address] Information no t available 11/01/2022 Are There Any Guns Present In Your Home? No Information not available 02/04/2019 Hard Of Hearing Or Deaf In One Or Both Ears? No Information not available 02/04/2019 Legally Blind In One Or Both Eyes? No Information no t available 02/04/2019 Marital Status Domestic Partner Information not available 02/04/2019 What Was The Date Of Your Most Recent Tobacco Screening? 01/16/2024 Information not available 01/16/2024 How Many Children Do You Have? 1 Information not available 01/18/2022 Do You Have Any Pets? Yes Rabbit Information not available 11/01/2022 Do You Use Protection During Sex? No Information not available 03/01/2022 What Is Your Relationship Status? Domestic Partner Information not available 03/01/2022 Do You Use Your Seat Belt Or Car Seat Routinely? Yes Information not available 08/23/2020 Seat Belts Used Routinely Yes Information not available 02/04/2019 Are You Sexually Active? Yes Information not available 03/01/2022 Do You Have Smoke And Carbon Monoxide Detectors In Your Home? Yes Information not available 08/23/2020 Are You Passively Exposed To Smoke? No Information no t available 08/23/2020 Do You Or Have You Ever Used Smokeless Tobacco? Never Used Smokeless Tobacco Information not available 02/04/2019 How Much Tobacco Do You Smoke? No Information not available 02/04/2019 Do You Feel Stressed (tense, Restless, Nervous, Or Anxious, Or Unable To Sleep At Night)? [id number] Information not available 03/01/2022 Do You Use Any Illicit Or Recreational Drugs? No Information not available 08/23/2020 Do You Use Sunscreen Routinely? No Information not available 01/18/2022 Has Tobacco Cessation Counseling Been Provided? Yes [email or web address] Information not available 09/25/2022 On What Date Was Tobacco Cessation Counseling Provided? 01/16/2024 Information not available 01/16/2024 Do You Or Have You Ever Used Any Other Forms Of Tobacco Or Nicotine? No Information not available 08/23/2020 Sex: Female Functional Status Question Answer Note LastModified by Organizat ion Details LastModified Time Are you able to care for yourself? Yes Information not available 08/23/2020 What is your exercise level? Occasional Information not available 02/04/2019 Mental Status None recorded. Family History Relationship Description Onset Age of this Age Resolved Age Notes LastModified by Organization Details LastModified Time Mother Diabetes mellitus Not available 2018 11:28:39 Paternal Grandmother Cerebrovascu lar accident 40 40 [email or web address] Not available 09/2020 15:24:01 Notes:No new reported 4, 11/11/23 Medical History Condition Response Coronary Artery Disease N Other N Atrial Fibrillation N High Blood Pressure Y Kidney or Bladder Problems N Thyroid Problems N GI Problems N Depression N COPD N Blood Clots N Have you had a mammogram in the last yea r? N Skin Problems N Anemia N Heart Attack ([place]) N Anxiety Disorder N Diabetes N Muscle, Joint, or Bone Problems N Seizures/Epilepsy N Have you had a colonoscopy in the last 1 0 years? N Acid Reflux (GERD) N Cancer N Stroke N Asthma N Allergies N Have you had a PSA blood test in the las t year? N High Cholesterol N Hepatitis N Liver Disease N Headaches N Heart Failure N Osteoporosis N Gynecological History Statement/Question Response Flow Light Date of LMP 10/26/2023 On BCP's at Conception? N STIs/STDs N Duration of Flow (days) 3 Age at Menarche 15 Current Control Method Implant Age at First Child 25 Sexually Active? N Menses Monthly N Date of Last Pap Smear 11/01/2022 LMP Approximate Obstetrics History GPAL:G 2 P 1 0 0 1 Type Value Multiple Births 0 Full Term 1 Induced 0 Spontaneous 0 Premature 0 Living 1 Ectopics 0 Total 2 Immunizations Vaccine Type Date Status Note Provider Nam e and Address Organization Details Recorded Time Tdap 6 completed SHIELA Mitchell Attn: Accounting,[address] [place], [place], [address] [place] [address], [place] [facility] 07/21/2019 10:44:34 COVID-19, mRNA, LNP-S, PF, 30 mcg/0.3 mL dose 1 completed VLADIMIR QUINONES DO Attn: Accounting,[address] [place], [place], [address] [place] [address], [place] [facility] 04/09/2023 10:40:01 COVID-19, mRNA, LNP-S, PF, 30 mcg/0.3 mL dose 1 completed VLADIMIR QUINONES DO Attn: Accounting,[address] [place], [place], [address] [place] [address], [place] [facility] 04/09/2023 10:40:02 COVID-19, mRNA, LNP-S, PF, 30 mcg/0.3 mL dose 1 completed VLADIMIR QUINONES DO Attn: Accounting,[address] [place], [place], [address] [place] [address], [place] [facility] 04/09/2023 10:40:02 Tdap 3 completed MARIA TERESA RIVER MD Attn: Accounting[address] [place], [place], [address] [place] [address], [place] [facility] 01/16/2024 10:32:22 Influenza, split virus, quadrivalent, PF 0 completed [place] Dur[place], [place] [facility] 07/21/2019 11:04:33 Influenza, split virus, quadrivalent, PF 1 completed Mariana Israel RN [place], [place] [facility] 08/23/2020 12:27:57 Influenza, split virus, quadrivalent, preservative 2 [facility] Att[facility]: Accounting[address] [place], [address], [facility] 03/05/2022 11:27:42 Influenza, split virus, quadrivalent, preservative 3 completed [facility] Attn: Accounting[address] [place], [address], [facility] 06/05/2022 17:07:19 Tdap 3 completed Shirley Hatfield LPN [facility] 02/26/2023 07:49:18 Past Encounters Encounter ID Performer Location Encounter Start Date Encounter Closed Date Diagnosis/Indication Diagnosis SNOMED-CT Code Diagnosis ICD10 Code Diagnosis Note [id number] [facility] [address] [phone] 02/04/2019 11:14:06 02/04/2019 17:54:43 Amenorrhea 90347305 N91.2 If HCG ql negative will administer Depo ProveraNo sex/condom s for next 5 days Initiation of depot contraception done 4720033758 03174 Z30.013 bring to office for administra tionwill administer then Uses depot contraception 609549190 Z30.013 Will order Depo Provera injection for the patient Depression screening 171 555362 Z13.31 negative Musculoskeletal pain 279 259360 M79.10 use warm compressio n to L flank areamay try OTC ibuprofen 200mg take 2 tabs every 6 hours with food as necessary [id number] Odalis Dudley [facility] [address], [place] [address] 07/21/2019 09:52:19 07/22/2019 10:53:18 Gynecologic examination 96905408 Z01.419 Amenorrhea 83117450 N91. 2 Body mass index 25-29 - overweight 460136753 Z68.26 BMI 26Ht 5' 2.75 Healthy Weight range 105-140 Administra tion of influenza vaccine 53123986 Z23 Microscopic hematuria 19 6649212 R31.21 Chronic constipation 236 732634 K59.09 [id number] [facility] [address] [id number] 08/23/2020 10:59:14 08/24/2020 10:33:12 Gynecologic examination 54190952 Z01.419 only 1 pap in the system will get another one today as no access to previous paps Body mass index 25-29 - overweight 717246658 Z68.26 BMI 26.5 Ht 5' 2.75 Healthy Weight range 105-140 Administra tion of influenza vaccine 75836762 Z23 Increased blood pressure 06118785 R03.0 b/p 142/96 L arm with electronic b/p machine reduce salt in your diet 50-60 minutes of aerobic physical activity 5-6 time per week lose weight 5-20% of current body weight if B/P remains elevated will start B/P meds Diffuse alopecia 4382125 07 L65.9 Muscle tension 090248007 R29.898 use ice/heat to upper back as necessary stretching exercises [id number] [facility] [address] [phone] 08/29/2020 12:34:30 08/30/2020 12:09:46 Mixed hyperlipidemia 287883096 E78.2 08/23/2020 cho 252 Trig 316 HDL 42 LDL 167 Vitamin D deficiency 347 82184 E55.9 Vitamin D 13.4 Take Rx for 12 weeks then proceed to take Vitamin D3 2000 IU daily Body mass index 25-29 - overweight 010357637 Z68.26 BMI 26.5 Ht 5' 2.75 Healthy Weight range 105-182 [id number] [facility] [address] [id number] 09/28/2020 14:38:25 09/30/2020 13:37:05 Increased blood pressure 33877464 R03.0 b/p 146/104 L arm with electronic b/p machine patient is asymptomat ic reduce salt in your diet 50-60 minutes of aerobic physical activity 5-6 time per week lose weight 5-20% of current body weight if B/P remains elevated will start B/P meds start checking b/p at home and keep a record of it bring it to appointmen t Mixed hyperlipidemia 267 859131 E78.2 08/23/2020 cho 252 Trig 316 HDL 42 LDL 167 Avoid all breads, potatoes, cereal, pasta, rice, margarine, refined sugars, milk yogurt, ice cream, juices, soda (including diet), beer, and manmade or manufactur ed desserts. Enjoy steak, fish, chicken (no skin), pork, butter, vegetables , beans, nuts, whole eggs, cheese (low fat or skim), cream in your coffee. Vitamin D deficiency 347 49511 E55.9 Vitamin D 13.4 Take Rx for 12 weeks then proceed to take Vitamin D3 2000 IU daily Vitamin D continue Rx Vitamin D2 85327 IU once weekly for 12 weeks once you complete RX buy otc vitamin D3 1000 IU once daily Body mass index 25-29 - overweight 282699993 Z68.26 BMI 26.3 Ht 5' 2.75 Healthy Weight range 105-708 [id number] Odalis Dudley [facility] [address] [place] [address] 01/18/2022 12:13:49 01/22/2022 15:11:22 Abnormal uterine bleeding 5978619338 9100 N93.9 Body mass index 25-29 - overweight 077576923 Z68.26 BMI 26.3 Ht 5' 2.75 Healthy Weight range 105-140 Depression screening 171 193174 Z13.31 negative Essential hypertension 92007270 I10 B/P 140/106 L armasympto maticwill initiate treatment [id number] Odalis Dudley [facility] [address] [place] [address] 03/01/2022 14:06:35 03/05/2022 15:42:52 Abnormal uterine bleeding 2893094451 9100 N93.9 pelvic ultrasound shows fibroids Body mass index 25-29 - overweight 824741089 Z68.26 BMI 26.3 Ht 5' 2.75 Healthy Weight range 105-140 Depression screening 171 117594 Z13.31 PHQ2-9 negative Mental [facility]a [facility] screening 541644649 Z13.39 ALIX-7 negative Uterine leiomyoma 071770 05 D25.9 02/08/22 Pelvic u/s Mass in the fundal region suspicious for fibroid. This may be submucosal in location. Administra tion of influenza vaccine 14945201 Z23 [id number] Odalis Dudley [employer] [address] [place] [address] 06/05/2022 15:16:48 06/06/2022 10:54:34 Essential hypertension 73202648 I10 BP Goal: {{Less than 140/90 Les s than 150/90*}}B P Controlled : {{yes no*} }Healthy Weight: {{4'10= 91-118 lbs 4'11= 94-123 lbs 5'= 97-127 lbs 5'1= 100-131 lbs 5'2= 104-135 5' 3= 107-140 lbs* 5'4= 110-144 lbs 5'5= 115-149 lbs 5'6= 118-154 lbs 5'7= 121-158 lbs 5'8= 125-163 lbs 5'9= 128-168 lbs 5'10= 132-173 lbs 5'11= 136-178 lbs 6'= 140-183 lbs 6'1= 144-188 lbs 6'2= 148-193 lbs 6'3= 152-199 lbs 6'4= 156-204 lbs}}Discu ssed: Low sodium balanced diet, moderate exercise at least 3-4 times per week for an average of 40 minutesNex t Visit: {{1 2 3* 4 5 6 7 8 9 10 11 12} }{{week(s) month(s)* }} Body mass index 25-29 - overweight 704542244 Z68.26 BMI 26.0 Ht 5' 2.75 Healthy Weight range 105-140 Depression screening 171 117014 Z13.31 PHQ2-9 negative Mixed hyperlipidemia 267 390068 E78.2 08/23/2020 cho 252 Trig 316 HDL 42 LDL 167 01/18/2022 cho 223trig 236HDL 37.7LDL 153 Avoid all breads, potatoes, cereal, pasta, rice, margarine, refined sugars, milk yogurt, ice cream, juices, soda (including diet), beer, and manmade or manufactur ed desserts. Enjoy steak, fish, chicken (no skin), pork, butter, vegetables , beans, nuts, whole eggs, cheese (low fat or skim), cream in your coffee. Mental [facility] screening 779565684 Z13.39 ALIX-7 negative Liver func tion tests outside reference range 762585444 R94.5 Migraine with aura 09569 06 G43.109 x 3 years with photophobi a, phonophobi a, nauseatake s medication from [facility] Administra tion of influenza vaccine 99436850 Z23 [id number] [facility] [address], [place] [address] 06/08/2022 10:28:56 06/18/2022 12:54:18 Essential hypertension 91469869 I10 BP Goal: {{Less than 140/90 Les s than 150/90*}}B P Controlled : {{yes no*} }Healthy Weight: {{4'10= 91-118 lbs 4'11= 94-123 lbs 5'= 97-127 lbs 5'1= 100-131 lbs 5'2= 104-135 5' 3= 107-140 lbs* 5'4= 110-144 lbs 5'5= 115-149 lbs 5'6= 118-154 lbs 5'7= 121-158 lbs 5'8= 125-163 lbs 5'9= 128-168 lbs 5'10= 132-173 lbs 5'11= 136-178 lbs 6'= 140-183 lbs 6'1= 144-188 lbs 6'2= 148-193 lbs 6'3= 152-199 lbs 6'4= 156-204 lbs}}Discu ssed: Low sodium balanced diet, moderate exercise at least 3-4 times per week for an average of 40 minutesNex t Visit: {{1 2 3* 4 5 6 7 8 9 10 11 12} }{{week(s) month(s)* }} Liver func tion tests outside reference range 138456771 R94.5 [id number] Allie Caldera [facility] [address] [place] [address] 07/06/2022 15:14:31 07/09/2022 14:49:59 Essential hypertension 85037682 I10 BP Goal: {{Less than 140/90* Le ss than 150/90}}BP Controlled : {{yes* no} }Healthy Weight: {{4'10= 91-118 lbs 4'11= 94-123 lbs 5'= 97-127 lbs 5'1= 100-131 lbs 5'2= 104-135 5' 3= 107-140 lbs* 5'4= 110-144 lbs 5'5= 115-149 lbs 5'6= 118-154 lbs 5'7= 121-158 lbs 5'8= 125-163 lbs 5'9= 128-168 lbs 5'10= 132-173 lbs 5'11= 136-178 lbs 6'= 140-183 lbs 6'1= 144-188 lbs 6'2= 148-193 lbs 6'3= 152-199 lbs 6'4= 156-204 lbs}}Discu ssed: Low sodium balanced diet, moderate exercise at least 3-4 times per week for an average of 40 minutesNex t Visit: {{1 2 3* 4 5 6 7 8 9 10 11 12} }{{week(s) month(s)* }}continue present med you have refills Body mass index 25-29 - overweight 967223585 Z68.26 BMI 25.8 Ht 5' 2.75 Healthy Weight range 105-140 Overweight 557624316 E66 .3 BMI 25.8 Ht 5' 2.75 Healthy Weight range 105-140 Mixed hyperlipidemia 267 039601 E78.2 08/23/2020 cho 252 Trig 316 HDL 42 LDL 167 01/18/2022 cho 223trig 236HDL 37.7LDL 153 06/08/2022 cho 224.1trig 187HDL 40LDL 149 Avoid all breads, potatoes, cereal, pasta, rice, margarine, refined sugars, milk yogurt, ice cream, juices, soda (including diet), beer, and manmade or manufactur ed desserts. Enjoy steak, fish, chicken (no skin), pork, butter, vegetables , beans, nuts, whole eggs, cheese (low fat or skim), cream in your coffee.Pat ient did not tolerate fenofibrat ePatient will try atorvastat in and continue LSM Liver func tion tests outside reference range 924468541 R94.5 repeat testing normal on 06/08/2022 Depression screening 171 092662 Z13.31 PHQ2-9 negative Mental hea lth screening 000290670 Z13.39 ALIX-7 negative [id number] Theo Linares MD [facility] (INTERNAL MEDICINE VETERINARY TECHNICIAN) [address] [place] [address] 09/25/2022 13:39:15 09/27/2022 14:35:54 Routine care 579144852 Z34.91 32yo HF with h/o cHTN who presents today for initial OB visit at 10 weeks. LMP 07/16/22. Denies bleeding, cramping, fevers. IPL drawn. BSUS performed showing SIUP at 9w1d, FHT present at 177. OB education provided and SAB precaution s discussed. Transfer to OB (Dr. Linares) for care due to cHTN. Chronic hy pertension in obstetric context 4550495 O16.9 Stopped atenolol-c hlorthalid one when found out she was . Will initiate nifedipine today. Monitor BP. Discussed starting ASA around 12 weeks for pre-E prevention . Skin lesion 91788390 L98 .9 Tender dark brown pedunculat ed skin lesion on right upper thigh x 1 week. Excisional biopsy performed today as detailed in the procedure note. Will follow up with path results. [id number] MD Serge Reeder [address] Ball [address] [place] [address] 11/01/2022 11:18:41 11/06/2022 11:12:03 Routine care 018772918 Z34.82 [facility] 103766037 Z91.89 Carrier of cystic fibrosis gene mutation 886581452 Z14.1 --Test FOB Chronic hy pertension in obstetric context 2872469 O16.9 --Monitor BP [id number] MD Serge Reeder [address] [place] [address] Dr [facility] [place] [address] 12/11/2022 14:03:40 12/19/2022 10:20:49 Routine care 297440928 Z34.82 Chronic hy pertension in obstetric context 5922568 O16.9 --Monitor BP [id number] Jeanette Claros Serge 14 [address] [place] [address] 12/19/2022 14:15:43 12/20/2022 09:41:15 Chronic hypertension in obstetric context 2007431 O16.9 --Monitor BP [id number] MD Serge Reeder 14 OB [address] [facility] [place] [address] 12/31/2022 15:11:22 01/26/2023 08:48:18 Routine care 666441463 Z34.82 Chronic hy pertension in obstetric context 0644997 O16.9 --Monitor BP [id number] MD Serge Reeder 14 OB [address] [facility] [place] [address] 01/14/2023 15:20:36 01/26/2023 10:40:48 Routine care 648178599 Z34.82 Carrier of cystic fibrosis gene mutation 242286891 Z14.1 --Test FOB Chronic hy pertension in obstetric context 8728786 O16.9 --Monitor BP--BP well controlled [id number] MD Serge Reeder 14 OB [address] [facility] [place] [address] 02/11/2023 10:02:16 02/12/2023 09:27:46 Routine care 277523729 Z34.82 Patient is who presents today for routine care at 29.0 weeks gestation. Benign ess ential hypertension complicating , childbirth and the puerperium - not delivered 448492408 O10.019 Carrier of cystic fibrosis gene mutation 538169258 Z14.1 --Test FOB [id number] MD Serge Reeder 14 OB [address] [facility] [place] [address] 02/25/2023 16:46:52 02/28/2023 14:14:13 Active or passive immunization 260439290 Z23 Routine an tenatal care 666567839 Z34.82 Patient is who presents today for routine care at 31.0 weeks gestation. Tdap to be administer ed today. Benign ess ential hypertension complicating , childbirth and the puerperium - not delivered 259344434 O10.019 --Procardi a 60mg XL BID--Labet alol 100mg BID--Anten atal testing at 32 weeks [id number] MD Serge Reeder 14 OB [address] [facility] [place] [address] 03/13/2023 14:45:42 03/20/2023 10:54:28 Routine care 296320337 Z34.82 Carrier of cystic fibrosis gene mutation 859498437 Z14.1 --Test FOB Benign ess ential hypertension complicating , childbirth and the puerperium - not delivered 424790792 O10.019 --Patient sent to L&D at [facility] for assessment of pre-eclamp rosaura--Proca rdia 60mg XL BID--Will increase dose of Labetalol from 100mg BID to 200mg BID--Anten atal testing at 32 weeks [id number] MD Serge Reeder 14 OB [address] [facility] [address] [facility] [place] [address] 03/25/2023 10:09:25 03/26/2023 09:06:05 Routine care 216002487 Z34.82 Benign ess ential hypertension complicating , childbirth and the puerperium - not delivered 302741686 O10.019 --Patient sent to L&D at [facility] for assessment of pre-eclamp rosaura--Proca rdia 60mg XL BID--Will increase dose of Labetalol from 100mg BID to 200mg BID--Khoa nue testing at 32 weeks Carrier of cystic fibrosis gene mutation 994416048 Z14.1 --Test FOB [id number] MD Serge Garibay 14 IM [address] [facility] [place] [address] 04/09/2023 10:35:26 04/12/2023 11:43:55 state 92904220 Z39.2 Need to obtain DC summaryCon tinue breast feedingPat ient to continue her PNV and iron supplement sDiscussed return precaution sPlanning on going to [facility] for other suppliesBr east pump given today Chronic hy pertension in obstetric context 3210887 O16.9 BP stable today, 130/60Reco mmend patient take regular BP measuremen ts at homeHR today was 56Will continue- Nifedpine 60mg bid- Labetolol 100mg bidFollow up in 1 week for BP check [id number] REHANA Casas 14 OB [address] [facility] [place] [address] 05/08/2023 16:35:08 05/09/2023 08:53:20 Past history of pre-eclampsia 9481317898 89511 Z87.59 --RTC on Saturday for BP check Depression screening 171 922652 Z13.31 [id number] MD Serge Reeder 14 OB [address] [facility] [place] [address] 06/18/2023 11:03:07 06/24/2023 08:43:18 [facility] 238243143 [facility] 105984028 Z30.9 --RTC for Nexplanon insertion Essential hypertension 79224986 I10 [id number] MD Serge Reeder 14 OB [address] [facility] [place] [address] 07/02/2023 11:39:51 07/04/2023 18:43:16 Insertion of subcutaneous contraceptive 294248150 Z30.46 --Pt informed that she should use a back up method for at least 7 days Essential hypertension 40946882 I10 --will add labetalol to current prescripti on of procardia 60mg BID [id number] MD Serge CRAWFORD 14 IM [address] [place] [address] 07/12/2023 10:37:38 07/22/2023 11:12:51 Essential hypertension 55632217 I10 Well controlled at this time; would like refills of her Nifedipine .She continues to have labetalol available at home. No refills required for labetalol at this time. Overweight 771105045 E66 .3 counseled re: weight loss; just recently gave 3 months ago. She continues to work to attempt to lose her weight. Thoracic back pain 43057 8004 M54.6 MSK back pain based on assessment and reproducib ility during physical activity.i s relieved with hot water and massage. Pain is worse with lifting carseat. Would like to avoid nephrotoxi c medication s such as motrin/adv il and would like medication for relief of muscle pain.Couns eled on physical therapy and is willing to do exercises at home for strengthen ing of the paraspinal muscles (interscap ular region). [id number] MD Serge Reeder 14 OB [address] [place] [address] 09/04/2023 14:50:18 09/05/2023 09:21:20 support 284752401 Z39.1 --discusse d need to increase breast feeding and pumping Irregular periods 853896 07 N92.6 --Secondar y to Nexplanon Overweight 409434564 E66 .3 [id number] MD Serge Garibay 14 IM [address] [place] [address] 11/11/2023 15:06:26 11/19/2023 14:09:52 Essential hypertension 36179784 I10 Pt presenting for renewal of BP medicines; She was taking nifedipine before her . During , she required additional therapy with labetalol that was successful in controllin g her BPs.Follow ing delivery, she persistent ly continued to have elevated pressures. She would like to continue the same medicines at this time. Multiple skin tags 75310 7009 L91.8 pt is concerned for skin tags, cosmetic concern; asymmetry, border, color, diameter are all within benign ranges. will remove skin tag at her next visit October- 2023 @ 4 pm. [id number] MD Serge Lagunas 14 IM [address] [place] [address] 11/18/2023 17:07:44 11/19/2023 14:11:30 Multiple skin tags 842839052 L91.8 pt is concerned for skin tags, ; asymmetry, border, color, diameter are all within benign limits.rem shen with scissors today; Dr. Aguirre was present during the entire procedure. [id number] MD Serge CRAWFORD 14 IM [address] [facility] [place] [address] 01/16/2024 09:44:40 02/05/2024 15:18:09 Viral syndrome 213566292 B34.9 Pt presenting with headaches, nausea, fatigue q5 days duration. Non specific but otherwise well appearing on exam. tonsils/th roat exam is benign with no concerns.W ill test for COVID/FluA /B but most likely viral syndrome.R TC if unresolved by 14 days.Sympt omatic treatment provided per below Transient paresthesia 13 4717882 R20.2 Pt complainin g of pins and needles in arms and legs/hands and feet.No significan t hx of alcohol abuse, diabetes that would raise concern for peripheral neuropathy .Will check CBC/CMP for any signs of anemia, vitamin deficiency , electrolyt e abnormalit ies.Will recommend vitamin supplement ation pending results. Health Concerns Section Related Observation LastModified by Organization Detai ls LastModified Time None Recorded Concern Status LastModified by Organization Details LastModified Time None Recorded Advance Directives Directive N: Payers Encounter Date Sequence Insurance Name Policy Number Policy Francois Covered Member ID Francois Member ID Guarantor Name 07/12/2023 2 *SELF PAY* Be ssy Olivas 07/12/2023 1 [facility] [place]AC[place] [facility] [place] [id number] Magdalena Karlo Olivas- Ion [id number] 25 Magdalena Olivas 09/04/2023 2 *SELF PAY* Be ssy Olivas 09/04/2023 1 [facility] (MEDICAID REPLACEMENT - HMO) [id number] Magdalena Karlo Olivas- Ion [id number] 25 Magdalena Olivas 11/11/2023 2 *SELF PAY* Be ssy Olivas 11/11/2023 1 [facility] (MEDICAID REPLACEMENT - O) [id number] Magdalena Karlo Olivas- Ion [id number] 25 Magdalena Olivas 11/18/2023 2 *SELF PAY* Be ssy Olivas 11/18/2023 1 [facility] (MEDICAID REPLACEMENT - O) [id number] Magdalena Karlo Olivas- Ion [id number] 25 Magdalena Olivas 01/16/2024 2 *SELF PAY* Be ssy Olivas 01/16/2024 1 [facility] (MEDICAID REPLACEMENT - HMO) [id number] Magdalena Lemon [id number] 25 Magdalena Olivas Notes Date Note Type Note Provider Name and Address Organization Details Recorded Time 07/12/2023 text/html Magdalena is a 32 y/ o F w/ PMHx of elevated BMI, E. HTN, HLD, who presents for follow-up BP medicine check. her BP is well controlled today and is requiring refills for her Nifedipine. She does not have any side effects from the medications. She does have a new complaint of back pain. It is worse when she lifts her baby in her car seat. Pain is better with massage and physical activity makes it worse. Warm compresses improve her pain. pain is described as a soreness in the interscapular region without radiation, burning or tingling/numbness. it gets worse throughout the day and worsens with prolonged periods of carrying her baby/car-seat. Pt denies any fever, chills, night sweats, changes in vision, cough, dysphagia, CP, palpitations, SOB, CVA tenderness, Abd discomfort, n/v/d/c, changes in urination frequency/dysuria, fatigue. MARIA TERESA RIVER MD Attn: Accounting,[address], [place], [address], [facility] 07/20/2023 15:59:23 09/04/2023 text/html Patient presents with multiple complaints. She states that since starting Nexplanon her breast milk supply has decreased. She also is concerned that she is experiencing irregular periods since placement of the device. She denies any other complaints. Theo Linares MD Attn: Accounting,[address], [place], [address], [facility] 09/04/2023 15:50:13 11/11/2023 text/html Magdalena is a 32 y/ o F w/ PMHx of elevated BMI, E. HTN, HLD, who presents for follow-up BP medicine check. her BP is well controlled today and is requiring refills for her Nifedipine & LabetalolShe does not have any side effects from the medications. She has no other complaints today. She mentions that she would like to address some of the melanocytic nevis on her neck. She has noticed them for many years and more recently they've developed a skin tag appearance.It gets caught on clothes and is of cosmetic concern. Allergies: noneMedications: none PMH- as noted in HPI PSH: none Health maintenance:Last Mammo: n/aPap: FebOVID: Already received 2 doses; declines booster Pt denies any fever, chills, night sweats, changes in vision, cough, dysphagia, CP, palpitations, SOB, CVA tenderness, Abd discomfort, n/v/d/c, changes in urination frequency/dysuria, fatigue. Vicki Driscoll MD Attn: Accounting[address] [place], [address], [facility] 11/18/2023 21:24:05 11/18/2023 text/html Magdalena is a 32 y/ o F w/ PMHx of elevated BMI, E. HTN, HLD, who presents for follow-up BP medicine check. her BP is well controlled today and is requiring refills for her Nifedipine & LabetalolShe does not have any side effects from the medications. She has no other complaints today. She mentions that she would like to address some of the melanocytic nevis on her neck. She has noticed them for many years and more recently they've developed a skin tag appearance. They often get caught on her jewlery/clothing and she is worried about them being ripped off. Pt denies any fever, chills, night sweats, changes in vision, cough, dysphagia, CP, palpitations, SOB, CVA tenderness, Abd discomfort, n/v/d/c, changes in urination frequency/dysuria, fatigue. Allie Aguirre MD Attn: Accounting[address] [place], [address], [facility] 11/19/2023 09:59:05 01/16/2024 text/html Magdalena is a 32 y/ o F w/ PMHx of elevated BMI, E. HTN, HLD, who presents for acute sick visit.She has been experiencing headaches, fatigue and nausea for duration of 5 days.She denies vomiting and is able to keep food and liquid down. She denies sick contacts. she has been using only Tylenol and endorses that it is helping to reduce the severity of symptoms. She is also complaining of transient parasthesias when she is first getting up in the morning/after laying down for a prolonged period of time. They last for a few seconds once she starts moving the limb in question. She denies any hx of alcohol use/illicit drug use and does not have a hx of diabetes. Pt denies any fever, chills, night sweats, changes in vision, cough, dysphagia, CP, palpitations, SOB, CVA tenderness, Abd discomfort, n/v/d/c, changes in urination frequency/dysuria, fatigue. MARIA TERESA RIVER MD Attn: Accounting[address] [place], [address], [facility] 02/04/2024 22:07:13 OBGyn Episode Ob Episode Information Episode Created Date Number of Fetuses Patient Bloodtype Patient rh Status Prepregnancy Weight lbs Domestic Partner Domestic Partner Phone Father Name Fourth Grade Teacher Status 09/26/19 23 1 B Positive 143 CLOSED Fetus Data First Name Last Name Admitted to NICU Weight (g) Sex Living Outcome Pediatric Complications Fetus ID Race Codes Race Delivery Type false 2551.45 5 F [id number] Spani Ameri can Chelly n Vaginal Problems Problem Notes 09/25/22 Breast Feed, NO EPI DURAL, PT WANTS SOMETHING ELSE FOR PAIN!! Undecided on Circ if boy, Pediatric undecided, PPBC Nexplanon BC Device, cb-rma Problem Name Start Date End Date Resolution Snomed Code Not e Chronic hypertension in obstetric context 09/25/2022 [id number] Nifedip ine 60mg BIDLabetalol 100mg BID Carrier of cystic fibrosis gene mutation 10/05/2022 [id number] Fabrizio Calculation Initial Fabrizio Date Initial Exam Date Initial Exam Provider Initial Ultrasound Date Last Menstrual Period Date Ultra Sound Weeks Gestation 04/22/2023 09/25/2022 [email or web address] 09/25/2022 07/16/2022 9 Eighteen To Twenty Week Fabrizio Update Ultra Sound Date Fundal Height At Umbil Quickening Date Ultra Sound Latest Weeks Gestation Final Fabrizio Confirmed By Final Fabrizio Confirmed Date Final Fabrizio Date Ultra Sound Latest Days Gestation 0 [email or web address] 09/27/2022 04/29/20 23 0 Pre-erin Flowsheet Flowsheet Date 09/25/2022 Gardiner Score Blood Edema Fundus Height Fundus Units Glucose Ketones Leukocytes Nitrite Labor Signs Protein Cervic Dilation Cervic Effacement Cervic Station trace none 9 wks none negative none neg Type Weight in lbs Pre/Post Dialysis Refused With clothes 143.212852045873 BP Diastolic BP Location Tested BP Systolic BP Type 82 128 sitting Fetus Heart Rate Present A 177 Present Fetus Movement Comments 32yo HF with h/o cHTN w ho presents today for initial OB visit at 10 weeks. LMP 07/16/22. Denies bleeding, cramping, fevers. IPL drawn. BSUS performed showing SIUP at 9w1d, FHT present at 177. OB education provided and SAB precautions discussed. Transfer to OB (Dr. Linares) for care due to cHTN. Flowsheet Date 11/01/2022 Gardiner Score Blood Edema Fundus Height Fundus Units Glucose Ketones Leukocytes Nitrite Labor Signs Protein Cervic Dilation Cervic Effacement Cervic Station trace none none negative none neg 0cm Type Weight in lbs Pre/Post Dialysis Refused With clothes 145.024426451346 BP Diastolic BP Location Tested BP Systolic BP Type 84 136 sitting Fetus Heart Rate Present A 150's Present Fetus Movement Comments Patient presents for initial visit. CBE and pap smear performed. Nutritional counseling performed. RTC in 4 weeks. Flowsheet Date 12/11/2022 Gardiner Score Blood Edema Fundus Height Fundus Units Glucose Ketones Leukocytes Nitrite Labor Signs Protein Cervic Dilation Cervic Effacement Cervic Station trace none none negative none neg Type Weight in lbs Pre/Post Dialysis Refused With clothes 150.972371079817 BP Diastolic BP Location Tested BP Systolic BP Type 95 150 sitting Fetus Heart Rate Present A 140's Present Fetus Movement A Yes Comments Patient admits to FM, AFP to day. Started Procardia for blood pressure control. labor precautions. RTC in 4 weeks. Flowsheet Date 12/19/2022 Gardiner Score Blood Edema Fundus Height Fundus Units Glucose Ketones Leukocytes Nitrite Labor Signs Protein Cervic Dilation Cervic Effacement Cervic Station Type Weight in lbs Pre/Post Dialysis Refused Weight 149.130536804145 BP Diastolic BP Location Tested BP Systolic BP Type 98 140 sitting Fetus Heart Rate Present Fetus Movement Comments Flowsheet Date 12/31/2022 Gardiner Score Blood Edema Fundus Height Fundus Units Glucose Ketones Leukocytes Nitrite Labor Signs Protein Cervic Dilation Cervic Effacement Cervic Station trace none none negative none neg Type Weight in lbs Pre/Post Dialysis Refused With clothes 152.586980081353 BP Diastolic BP Location Tested BP Systolic BP Type 75 121 sitting Fetus Heart Rate Present A 150's Present Fetus Movement A Yes Comments Patient denies any complaint s. RTC in 4 weeks. Flowsheet Date 01/14/2023 Gardiner Score Blood Edema Fundus Height Fundus Units Glucose Ketones Leukocytes Nitrite Labor Signs Protein Cervic Dilation Cervic Effacement Cervic Station trace none 1+ trace none neg Type Weight in lbs Pre/Post Dialysis Refused With clothes 152.656538468509 BP Diastolic BP Location Tested BP Systolic BP Type 77 120 sitting Fetus Heart Rate Present A 140's Present Fetus Movement A Yes Comments DMS and CBC today. l abor precautions given. RTC in 4 weeks. Flowsheet Date 02/11/2023 Gardiner Score Blood Edema Fundus Height Fundus Units Glucose Ketones Leukocytes Nitrite Labor Signs Protein Cervic Dilation Cervic Effacement Cervic Station neg none 30 cm none negative none neg Type Weight in lbs Pre/Post Dialysis Refused With clothes 157.470141490473 BP Diastolic BP Location Tested BP Systolic BP Type 83 134 sitting Fetus Heart Rate Present A 141 Present Fetus Movement A Yes Comments Patient is a 32y/o p resenting today for routine care. complicated by CF + and Chronic HTN. No vaginal leakage of fluid, no discharge, bleeding or contractions. Good movement. No acute concerns today. Will get CBC and 1hr GTT today. RTC in 4 weeks. labor precautions given. Flowsheet Date 02/25/2023 Gardiner Score Blood Edema Fundus Height Fundus Units Glucose Ketones Leukocytes Nitrite Labor Signs Protein Cervic Dilation Cervic Effacement Cervic Station neg none 33 cm none negative neg Type Weight in lbs Pre/Post Dialysis Refused With clothes 163.790553324101 BP Diastolic BP Location Tested BP Systolic BP Type 84 135 sitting Fetus Heart Rate Present A 145 Present Fetus Movement A Yes Comments 32 y/o [id number] presenting for routine care. Chronic HTN, well controlled with Labetalol Aspirin and Procardia 60 mg BID. Denies vaginal leakage, discharge bleeding and contractions. Good movement. Only concern today is back pain. Flowsheet Date 03/13/2023 Gardiner Score Blood Edema Fundus Height Fundus Units Glucose Ketones Leukocytes Nitrite Labor Signs Protein Cervic Dilation Cervic Effacement Cervic Station trace none 35 cm none negative none trace Type Weight in lbs Pre/Post Dialysis Refused With clothes 164.447804525173 BP Diastolic BP Location Tested BP Systolic BP Type 93 145 sitting Fetus Heart Rate Present A 140's Present Fetus Movement A Yes Comments Patient states that she does not feel well and she admits to pain in her lower abdomen. She states that she knows that her blood pressure is elevated and she has a headache. She denies VB and LOF. Will increase dose of labetalol to 200mg BID. Pt advised to go L&D at [facility]. Pre-term labor precautions given. RTC in 1 week. Flowsheet Date 03/25/2023 Gardiner Score Blood Edema Fundus Height Fundus Units Glucose Ketones Leukocytes Nitrite Labor Signs Protein Cervic Dilation Cervic Effacement Cervic Station trace none 36 cm none negative none neg Type Weight in lbs Pre/Post Dialysis Refused With clothes 168.487162826876 BP Diastolic BP Location Tested BP Systolic BP Type 98 148 sitting Fetus Heart Rate Present A 150's Present Fetus Movement A Yes Comments Patient admits to FM, denies VB, LOF, CTXs, headache, visual changes and RUQ pain. GBS and STD testing today. Pt sent to L&D to assess for pre-eclampsia. Labetalol increased from 100mg BID to 200mg BID. RTC in 2 weeks. Flowsheet Date 04/09/2023 Gardiner Score Blood Edema Fundus Height Fundus Units Glucose Ketones Leukocytes Nitrite Labor Signs Protein Cervic Dilation Cervic Effacement Cervic Station Type Weight in lbs Pre/Post Dialysis Refused With clothes 160.788843698071 BP Diastolic BP Location Tested BP Systolic BP Type 60 130 sitting Fetus Heart Rate Present Fetus Movement Comments Menstrual History Last Menstrual Date Menses Monthly On Bcp Conception Prior Menses Frequency Hcg Plus Date Menarche Onset Age 0207/16/2022 false Genetic Screening And Infection History Question Response Note Patient's Age Will Be 35 Yea rs Or Older At Estimated Date of Delivery false Thalassemia (Slovenian, Urdu, Mediterranean, Or Background): MCV < 80 false Neural Tube Defect (Meningom yelocele, Spina Bifida, Or Anencephaly) false Congenital Heart Defect false Down Syndrome false Raúl-Sachs (eg, Yazidism, Cajun, Spanish-Stark) f alse Harriet Disease false Sickle Cell Disease Or Trait () false Hemophilia Or Other Blood Disorders false Muscular Dystrophy false Cystic Fibrosis false Crawford's Chorea false Mental Retardation/Autism false Other Inherited Genetic Or Chromosomal Disorder false Maternal Metabolic Disorder (eg, Type 1 Diabetes, PKU) false Patient Or Baby's Father Had A Child With Defects Not Listed Above false Recurrent Loss, Or A Stillbirth false Medications (including Suppl ements, Vitamins, Herbs, OTC Drugs), Illicit/Recreational Drugs, Alcohol true Atenolol 50-25mg for B/P Any Other Genetic History false Live With Someone With TB Or Exposed To TB false Patient Or Partner Has History Of Genital Herpes false Rash Or Viral Illness Since Last Menstrual Perio d false History Of STD, Gonorrhea, Chlamydia, HPV, Syphi lis false Other Infection History false History of HIV false History of Hepatitis false Prior GBS-infected child false Plans and Education First Trimester Discussed Date Discussion Item Discussion Note Discuss ed By 09/25/2022 09/25/22 Breast feed, cb-rm a cbradshawma Second Trimester Discussed Date Discussion Item Discussion Note Discuss ed By 09/25/2022 Selecting a care provider 09/25/22 Pediatrican undecided, cb-rma cbradshawma 09/25/2022 family planning/tubal sterilization 09/25/22 PPBC Nexplanon BC Device, cb-rma cbradshawma Third Trimester Discussed Date Discussion Item Discussion Note Discuss ed By 09/25/2022 Anesthesia plans 09/25/22 NO EPI DURAL, PT WANTS SOMETHING ELSE FOR PAIN, cb-rma cbradshawma 09/25/2022 Circumcision 09/25/22 Undecid ed on circ if boy, cb-rma dianaradshawma 09/25/2022 09/25/22 Breast feed, cb-rm a cbradshawma Delivery Information Delivery Date Delivery Type Labor Anesthesia Weeks Gestation Incision Type Labor Labor Length Hrs Delivered By Post Complications Tubal Sterilization Discharge Date Comments 3 Induce d 36.4 04/07/2023 Discharge Information Feeding Method Contraceptive Method Maternal HG B and HCT Levels Ob Episode Information Episode Created Date Number of Fetuses Patient Bloodtype Patient rh Status Prepregnancy Weight lbs Domestic Partner Domestic Partner Phone Father Name Fourth Grade Teacher Status 02/05/20 19 1 CLOSED Fetus Data First Name Last Name Admitted to NICU Weight (g) Sex Living Outcome Pediatric Complications Fetus ID Race Codes Race Delivery Type 4082.32 8 F Full Term [id number] Vaginal Fabrizio Calculation Initial Fabrizio Date Initial Exam Date Initial Exam Provider Initial Ultrasound Date Last Menstrual Period Date Ultra Sound Weeks Gestation 0 Eighteen To Twenty Week Fabrizio Update Ultra Sound Date Fundal Height At Umbil Quickening Date Ultra Sound Latest Weeks Gestation Final Fabrizio Confirmed By Final Fabrizio Confirmed Date Final Fabrizio Date Ultra Sound Latest Days Gestation 0 0 Menstrual History Last Menstrual Date Menses Monthly On Bcp Conception Prior Menses Frequency Hcg Plus Date Menarche Onset Age Delivery Information Delivery Date Delivery Type Labor Anesthesia Weeks Gestation Incision Type Labor Labor Length Hrs Delivered By Post Complications Tubal Sterilization Discharge Date Comments 6 None 40 6 09/25/22 baby girl born in [place], cb-rma Discharge Information Feeding Method Contraceptive Method Maternal HG B and HCT Levels
--- OUTSIDE RECORDS SUMMARY | 2024-09-17 20:55 | XMS_ITS | Clinical Summary ---
Author Organization [facility] Address [address] [place] [address] Care Team Providers Care Flue Blower Name Role Phone Unavailable Primary Care Provider Unavailabl e Source Comments [facility],non-owned Affiliates and Associated Physician Practices is amultiple site organization consisting of ambulatory clinics and hospital sitesin [place], [place], [place] and [place]. This disclosure is being madepursuant to the Care Everywhere program and may not contain all information available regarding this patient. Last updated 18.[facility] [employer] Allergies No known active allergies Medications * This document contains information received from the source organization and may not represent a complete record from that organization. * Be aware that medications may not be up to date on this document. Alwaysverify current medications with the patient. Vit-DSS-Fe Fum-FA ( vitamin with iron) tablet Take 1 (one) tablet by mouth once daily Active acetaminophen (Tylenol) 500 MG tablet Take 2 (two) tablets by mouth every 6 hours as needed for Pain Maximum allowable Acetaminophen amount = 4 Grams (4000 mg) / 24 hours. 120 tablet 04/07/20 23 Active ibuprofen (Motrin) 600 MG tablet Take 1 (one) tablet by mouth every 6 hours as needed for Pain 60 tablet 04/07/20 23 Active labetalol (Normodyne; Trandate) 200 MG tablet Take 2 (two) tablets by mouth every 8 hours 300 tablet 2 04/07/20 23 Active iron polysaccharides (Niferex 150) 150 MG capsule Take 1 (one) capsule by mouth once daily 120 capsule 04/07/20 23 Active Active Problems Problem Noted Date Diagnosed Date Severe pre-eclampsia in third trimester 04/04/20 23 Obesity, Class I, BMI 30-34.9 04/04/2023 COVID-19 affecting , antepartum 023 Parainfluenza infection 04/04/2023 Nausea and vomiting during 03/13/2023 Chronic hypertension affecting 023 Overview (02/21/2023): Elevated blood pressures noted 02/20, sent for preeclampsia labs: PCR: 0.22. H/H/P: 12.9/38/302. CMP: creatinine: 0.43, AST: 15, ALT: 11. Adjusted antihypertensive regimen 02/20: procardia 60mg BID and added labetalol 100mg BID Immunizations Immunization Administration Dates Next Due MMR 04/06/2023() TDAP (7yrs+) 04/07/2023 Social History Tobacco Use Types Packs/Day Years Used Date Smoking Tobacco: Never Smokeless Tobacco: Never Tobacco Cessation:Counseling Given: Not Answered Alcohol Use Standard Drinks/Week Comments Never 0 (1 standard drink = 0.6 oz pur e alcohol) AUDIT-C Answer Date Recorded Q1: How often do you have a drink containing alcohol? Never 04/03/2023 Q2: How many drinks containi ng alcohol do you have on a typical day when you are drinking? Patient does not drink Q3: How often do you have si x or more drinks on one occasion? Never 04/03/2023 Overall Financial Resource Strain (CARDIA) Answe r Date Recorded How hard is it for you to pa y for the very basics like food, housing, medical care, and heating? Not hard at all 04/03/2023 [facility] [place] [facility] Occupat ional [facility] - Occupational Stress Questionnaire Answer Date Recorded Do you feel stress - tense, restless, nervous, or anxious, or unable to sleep at night because your mind is troubled all the time - these days? Not at all 04/03/2023 Hunger Vital Sign Answer Date Recorded Within the past 12 months, y ou worried that your food would run out before you got the money to buy more. Never true 04/03/20 23 Within the past 12 months, t he food you bought just didn't last and you didn't have money to get more. Never true 04/03/2023 PRAPARE - Transportation Answer Date Re corded In the past 12 months, has l ack of transportation kept you from medical appointments or from getting medications? No 12/2022 In the past 12 months, has l ack of transportation kept you from meetings, work, or from getting things needed for daily living? No 04/03/2023 Housing Stability Vital Sign Answer Sudhir e Recorded In the last 12 months, was t here a time when you were not able to pay the mortgage or rent on time? No 04/03/2023 In the last 12 months, how many places have you lived? 1 04/03/2023 In the last 12 months, was t here a time when you did not have a steady place to sleep or slept in a prison (including now)? No 04/03/2023 [place] Depression Scale Answer Date Recorded [place] Depression Scale Total 0 04/07/2023 The thought of harming myself has occurred to me . Never 04/07/2023 Comments No Sex and Gender Information Value Date Recorded Sex Assigned at Not on file Legal Sex Female 2:13 PM CDT Gender Identity Not on file Sexual Orientation Not on file Last Filed Vital Signs Vital Sign Reading Time Taken Comments Blood Pressure 147/89 04/07/2023 2:13 PM EXPELLER OPERATOR Pulse 70 04/07/2023 2:13 PM EXPELLER OPERATOR Temperature 36.8 C (98.3 F) 04/07/2023 7:38 AM EXPELLER OPERATOR Respiratory Rate 18 04/07/2023 10:14 AM EXPELLER OPERATOR Oxygen Saturation 100% 04/07/2023 10:14 AM EXPELLER OPERATOR Inhaled Oxygen Concentration - - Weight 78.5 kg (173 lb) 04/03/2023 10:04 PM EXPELLER OPERATOR Height 157.5 cm (5' 2 ) 04/03/2023 10:04 PM EXPELLER OPERATOR Body Mass Index 31.64 04/03/2023 10:04 PM EXPELLER OPERATOR Plan of Treatment Health Maintenance Due Date Last Done Comments PAP SMEAR 1989 HIV SCREENING 2004 HEPATITIS C SCREENING 08/27/2007 HEPATITIS B VACCINE (1 of 3 - 19+ 3-dose series) 2008 COVID-19 VACCINE ( season) 2024 10/08/2020, 09/16/2020 DEPRESSION SCREENING 05/27/2024 INFLUENZA VACCINE (Season Ended) 2025 06/05/2022, 03/02/2022, 08/23/2020, Additional history exists DTAP/TDAP/TD VACCINES (2 - Td or Tdap) 04/07/2033 04/07/2023 ZOSTER VACCINE (1 of 2) 09/01/2039 HIB VACCINE Aged Out No longer eligi ble based on patient's age to complete this topic HPV VACCINE Aged Out No longer eligi ble based on patient's age to complete this topic MENINGOCOCCAL (Group B) VACCINE SHARED DECISION-MAKING Aged Out No longer eligible based on patient's age to complete this topic MENINGOCOCCAL GROUPS A/C/Y/W VACCINE Aged Out No longer eligible based on patient's age to complete this topic PNEUMOCOCCAL VACCINE Aged Out No long er eligible based on patient's age to complete this topic Insurance [facility] MEDICAID Advance Directives * Full Code (Latest Code Status on File) Date Activated Date Inactivated Comments 04/04/2023 8:16 AM 04/07/2023 3:44 PM * Full Code Date Activated Date Inactivated Comments 04/03/2023 6:54 PM 04/04/2023 8:15 AM
[2024-09-17 21:00] LABS: Alanine Aminotransferase 20 U/L (6-35); Albumin Level 4.5 g/dL (3.5-5.1); Alkaline Phosphatase 72 U/L (38-126); Anion Gap 13 mmol/L (4-12); Aspartate Amino Transferase 24 U/L (14-36); Bilirubin,Total 0.2 mg/dL (0.2-1.3); Blood Urea Nitrogen 10 mg/dL (7-17); Calcium 8.9 mg/dL (8.4-10.2); Carbon Dioxide 20 mmol/L (22-30); Chloride 105 mmol/L (98-107); Estimated CRCL calculation 116 ml/min; Estimated Glomerular Filt Rate > 60; Glucose 109 mg/dL (65-110); Lipase 85 U/L (23-300); Potassium 3.4 mmol/L (3.4-5.0); Sodium 138 mmol/L (137-145)
[2024-09-17 21:19] LABS: Troponin I < 0.012 ng/mL (0.000-0.034)
[2024-09-17 21:36] LABS: BEDSIDEPREGUCG Negative (Negative)
[2024-09-17 21:36] LABS: Add Urine Microscopic? YES; Appearance Urine Turbid (Clear); Bacteria Urine None Seen /hpf; Bilirubin Urine Negative (Negative); Blood Urine 3+ (Negative); Color Urine Yellow (Yellow); Glucose Urine UA Negative (Negative); Ketones Urine Negative (Negative); Leukocyte Esterase Ur Negative LEU/UL (Negative); Nitrate Urine Negative (Negative); Non Pathogenic Casts 0-2; Protein Urine Trace mg/dL (Negative); Specific Grav Ur 1.014 (1.001-1.035); Squamous Epithelial Cell Urine Occasional /hpf (Few); Urobilinogen Urine 0.2 mg/dL (<2.0); WBC Urine 0-5 /hpf (0-3)
[2024-09-17] MEDS: SODIUM CHLORIDE 0.9% IV 1,000 ML 999 ML IV CONT (22:19)
[2024-09-17] MEDS: KETOROLAC 30 MG/ML VIAL (*BKC) IV PUSH (22:19)
[2024-09-17] MEDS: diphenhydrAMINE HCl INJ 50 MG/ML VIAL 25 MG IV PUSH (22:20)
[2024-09-17] MEDS: FAMOTIDINE 20 MG/2 ML VIAL IV PUSH (22:21)
[2024-09-17] MEDS: PROCHLORPERAZINE EDISYLATE 10 MG/2 ML VIAL IV PUSH (22:27)
[2024-09-17 22:29] VITALS: BP 149/92; PULSE 67; RESP 16; O2SAT 100
[2024-09-17 23:25] VITALS: BP 153/89; PULSE 62; RESP 18; TEMP 36.5; O2SAT 99
[2024-09-17 23:26] VITALS: BP 153/89; PULSE 62; RESP 18; TEMP 36.5; O2SAT 99
== END 2024-09-17 23:31 | disposition home or self-care (01) ==
PROVIDERS: Emergency Provider Physician Assistant; PCP Obstetrics & Gynecology
DX: G43.909 Migraine, unspecified, not intractable, without status migrainosus (principal); R16.0 Hepatomegaly, not elsewhere classified; K21.9 Gastro-esophageal reflux disease without esophagitis; I10 Essential (primary) hypertension
CPT/HCPCS: 36415; 70450; 74177; 80053; 81001; 81025; 83690; 84484; 85025; 93005; 96361; 96374; 96375; 99284; J0780; J1200; J1885; J7030; Q9967